=== PATIENT | female | born 1975 | race Caucasian/White ===

== ENCOUNTER 2025-07-16 02:21 | Emergency (ER) | payer OTHER, SELFPAY ==
--- NOTE | ~2025-07-16 | CT_ITS ---
CLINICAL HISTORY: Left sided abdominal pain CT abdomen and pelvis with contrast Comparison: None provided. Findings: No focal consolidation or effusion. Trace bilateral lower lobe subsegmental atelectasis. The gallbladder is surgically absent. The liver is enlarged. The liver appears normal in contour. The solid organs are otherwise within normal limits. No hydronephrosis or hydroureter. The kidneys enhance symmetrically. No bowel obstruction, pneumoperitoneum, or pneumatosis. Mildly limited evaluation of the stomach related to gastric underdistention. Scattered subcentimeter short axis lymph nodes are identified within the mesentery adjacent to the cecum. Pelvic contents unremarkable. No bladder wall thickening. Normal appendix. No acute fracture visualized. IMPRESSION: 1. Subcentimeter short axis lymph nodes identified within the mesentery adjacent to the cecum. This finding is nonspecific but may be seen in the setting of mesenteric adenitis. No other CT evidence for an acute inflammatory process identified within the abdomen or pelvis. 2. Hepatomegaly. This document has been electronically signed by: Bharat Torres MD on 07/16/2025 04:51:44
[2025-07-16 02:23] VITALS: BP 177/84; PULSE 87; RESP 18; TEMP 36.5; O2SAT 100; BMI 22.8
[2025-07-16 02:50] LABS: Hematocrit 27.4 % (37.0-47.0); Hemoglobin 7.9 g/dl (12.0-16.0); Imm Gran Abs Auto 0.04 X10*3/uL (0.00-0.03); Imm Gran Pct Auto 0.3 % (0.0-0.4); Lymphocytes Absolute Auto 4.4 X10*3/uL (1.2-4.9); MANUAL DIFF FLAG SCAN; Mean Corpuscular HGB Conc 28.8 g/dl (31.0-35.0); Mean Corpuscular Hemoglobin 17.7 pg (27.0-33.0); NRBC Abs Auto 0.000 X10*3/uL (0.0-0.012); NRBC Pct Auto 0.0 /100WBC (0.0-0.2); Platelet Count 538 X10*3/uL (160-400); Red Blood Count 4.47 X10*6/uL (4.20-5.50); SCAN SMEAR FLAG 1; White Blood Count 12.8 X10*3/uL (4.8-10.8)
[2025-07-16 02:54] LABS: Mean Corpuscular Volume 61.3 fL (80.0-98.0)
[2025-07-16 03:05] LABS: Alanine Aminotransferase 12 U/L (0-31); Albumin Level 4.1 g/dL (3.5-5.0); Alkaline Phosphatase 72 U/L (39-117); Anion Gap 15 (12-20); Aspartate Amino Transferase 16 U/L (5-31); Blood Urea Nitrogen 8 mg/dL (9-16); Calcium 8.8 mg/dL (8.4-10.2); Carbon Dioxide 25 mmol/L (22-29); Chloride 99 mmol/L (96-108); Creatinine Clr Calc Pharmacy 58.0; Estimated Glomerular Filt Rate 59; Potassium 2.9 mmol/L (3.3-5.1); Sodium 136 mmol/L (135-145); Total Protein 7.6 g/dL (6.5-8.0)
--- NOTE | 2025-07-16 03:19 | ED_ITS ---
HPI - General Adult General Chief complaint: Abdominal Pain Stated complaint: left side pain Time Seen by Provider: 07/16/25 03:19 History of Present Illness ED Provider: Diane SOLIS narrative: The patient is a 50-year-old female who says that she has been having pain in her left flank and left abdomen for about 10-12 days. She says that after 2 or 3 days of the pain she went to an urgent care center where she was told that everything checked out well but they were concerned she might have a left-sided kidney infection and so she was placed on 7 days of ciprofloxacin. She says she never had any urinary discomfort, urgency, or frequency. Additionally she had never had any fever or vomiting. Nevertheless she was prescribed a ciprofloxacin which she took and finished. She says that despite ciprofloxacin the pain has not improved and may have gotten worse. She says that the last couple of nights she has been having trouble sleeping because of the pain. The patient she comes to the emergency room tonight because of the ongoing pain. She says that she has had some decrease in her appetite but no nausea or vomiting. No diarrhea. No dysuria, urgency, or frequency. No vaginal discharge. The patient is on no medications. She does not have a primary care doctor. The patient says that she has a history of very heavy periods and has been anemic because of that in the past. The patient says that she has not seen a regular doctor since 2016. She says that she recently had her health insurance reinstated but her health insurance is a [employer] product which she obtained through the [employer] and she says it is very difficult to find a PCP the takes her health insurance in [facility]. Related Data Previous Rx's ?Medication ?Instructions ?Recorded ibuprofen 400 mg tablet 400 mg PO Q6H PRN pain #14 t abs 07/16/25 potassium chloride 10 mEq 20 meq (2 x 10 mEq) PO BID 1 week 07/16/25 capsule,extended release #28 caps Allergies Allergy/AdvReac Type Severity Reaction Status Date / Time strawberry (STRAWBERRY) Allergy Intermediate HIVES Unverified 07/16/25 02:26 Penicillins Allergy Mild HIVES Unverified 07/16/25 02:26 penicillin V Allergy Unknown Hives Verified 07/16/25 02:26 Review of Systems 2 Review of Systems: Yes all other systems are reviewed and are negative Physical Exam ED Vital Signs: Vital Signs - 24 hr 07/16/25 02:23 07/16/25 06:00 07/16/25 06:18 Temperature 97.7 F 97.9 F 97.9 F Pulse Rate 87 88 88 Respiratory Rate 18 16 16 Blood Pressure 177/84 H 170/74 H 170/74 H Pulse Oximetry 100 100 100 Oxygen Delivery Method Room Air Room Air Room Air BMI result Body Mass Index 22.8 Const Other: The patient is a 50-year-old female who was awake and alert. She is pleasant and cooperative. She did not seem in obvious distress or seem obviously acutely ill to me. Orientation/consciousness: patient oriented x3 HENMO Other: The patient has what looks to be some old bruising to the left side of her face. No raccoon eyes. No cormier sign. No dental injuries. Mucous membranes are moist. Normal excursion of the jaw. Eyes Other: No eyelid swelling. The eyes and periocular tissues appear normal. Pupils are round equal, extraocular movements are intact, conjunctivae are clear. Neck Other: Moving her neck easily without apparent discomfort. No neck swelling. Full range of motion. Resp Effort & Inspection: normal respiratory effort Auscultation: clear to auscultation bilaterally Cardio Rate: regular rate Rhythm: regular rhythm Heart sounds: S1 normal heart sound present and S2 normal heart sound present GI Other: The patient has left-sided abdominal tenderness without rebound Back/Spine/Pelvis Other: no CVA percussion tenderness. Skin Other: The patient has what looks like some old bruising to the cheek of the left side of the face. Otherwise the skin is dry and unremarkable. Neuro General: patient oriented x3, gait normal, tone normal, moves all extremities, no focal motor deficits and CN's II-XI intact bilaterally Extrem Other: There is no calf swelling or tenderness. No asymmetry. No peripheral edema. Medications Administered Discontinued Medications Generic Name Dose Route Start Last Admin Trade Name Freq PRN Reason Stop Dose Admin Sodium Chloride 1,000 mls @ 999 mls/hr 07/16/25 03:45 07/16/25 05:17 Ns IV 07/16/25 04:45 Infused .Q1H1M [place] Infusion Acetaminophen 1,000 mg in 100 mls @ 400 mls/hr 07/16/25 03:36 07/16/25 04:21 Ofirmev IV 07/16/25 03:50 Infused ONCE ONE Infusion Iohexol 85 ml 07/16/25 04:18 07/16/25 04:18 Iohexol 350 Mg/Ml 100 Ml Infus..Btl IV 07/16/25 04:19 85 ml ONCE ONE Administration Ketorolac Tromethamine 10 mg 07/16/25 03:36 07/16/25 03:50 Ketorolac Tromethamine 15 Mg/Ml Vial IVPUSH 07/16/25 03:37 10 mg ONCE ONE Administration Ondansetron HCl 4 mg 07/16/25 03:36 07/16/25 03:50 Ondansetron Hcl 4 Mg/2 Ml Vial IVPUSH 07/16/25 03:37 4 mg ONCE ONE Administration Potassium Chloride 40 meq 07/16/25 05:45 07/16/25 05:59 Potassium Chloride Er 20 Meq Tab.Er.Prt PO 07/16/25 05:46 40 meq ONCE ONE Administration Medical Decision Making Medical Decision Making [facility] Narrative: The patient presents with a complaint of left-sided abdominal pain that has been present for about 10 days. She says that she was seen at an urgent care center and placed on 7 days of ciprofloxacin for a possible kidney infection even though she says that she was told that all the results at the urgent care center were unremarkable. She has tenderness in the left side of her abdomen but she has no flank tenderness with CVA percussion. She otherwise does not look obviously acutely ill in any way. Her blood pressures are somewhat high. Her pulses normal. She is afebrile. She has no respiratory component to her complaint. The pain is nonpleuritic. The patient has a white count of 12.8 but she has a normal differential. The patient's CBC showed anemia. Her hemoglobin is 7.9. Her MCV is low. Her RDW was high. The patient's platelet count is elevated at 538. The patient's potassium was low at 2.9. LFTs are unremarkable. Lipase is normal. Glucose was 169. CRP is normal. The CT scan of the abdomen and pelvis shows some possible findings of mesenteric adenitis in the region of the cecum but otherwise no acute findings. There is some hepatomegaly. I doubt that the finding of mesenteric adenitis in the region of the cecum accounts for the patient's pain. My overall impression is that there was no acutely dangerous process at work. I think she may be discharged. She does not have a PCP. She says that her insurance does not have a lot of PCP coverage in [facility]. She is encouraged to contact her insurance to assist in getting a PCP. She should return if worse. She was prescribed supplemental potassium. Lab Data 07/16/25 02:34 07/16/25 02:34 Labs: Lab Results 07/16/25 07/16/25 Range/Units 02:34 04:06 WBC 12.8 H (4.8-10.8) X10*3/uL RBC 4.47 (4.20-5.50) X10*6/uL Hgb 7.9 L (12.0-16.0) g/dl Hct 27.4 L (37.0-47.0) % MCV 61.3 L (80.0-98.0) fL MCH 17.7 L (27.0-33.0) pg MCHC 28.8 L (31.0-35.0) g/dl RDW 18.8 H (11.0-16.0) % Plt Count 538 H (160-400) X10*3/uL MPV 9.4 (9.4-12.3) fL Immature Gran % (Auto) 0.3 (0.0-0.4) % Neut % (Auto) 52.5 (45-73) % Lymph % (Auto) 34.8 (20-40) % [place] % (Auto) 9.6 (2-11) % Eos % (Auto) 2.5 (0-4) % Baso % (Auto) 0.3 (0-2) % Lymph # (Auto) 4.4 (1.2-4.9) X10*3/uL [place] # (Auto) 1.2 (0.1-1.2) X10*3/uL Eos # (Auto) 0.3 (0.0-0.4) X10*3/uL Baso # (Auto) 0.0 (0.0-0.2) X10*3/uL Abs Immat Gran (auto) 0.04 H (0.00-0.03) X10*3/uL Absolute Neuts (auto) 6.7 (2.0-8.3) x10*3/uL Absolute Nucleated RBC 0.000 (0.0-0.012) X10*3/uL Nucleated RBC % (auto) 0.0 (0.0-0.2) /100WBC Smear Tech's Comments VERIFIED Smear Path Review SEE NOTE Sodium 136 (135-145) mmol/L Potassium 2.9 L* (3.3-5.1) mmol/L Chloride 99 (96-108) mmol/L Carbon Dioxide 25 (22-29) mmol/L Anion Gap 15 (12-20) BUN 8 L (9-16) mg/dL Creatinine 0.99 (0.5-1.4) mg/dL Estim Creat Clear Calc 58.0 Estimated GFR 59 Random Glucose 169 H (60-115) mg/dL Calcium 8.8 (8.4-10.2) mg/dL Total Bilirubin 0.1 (0.0-1.0) mg/dL AST 16 (5-31) U/L ALT 12 (0-31) U/L Alkaline Phosphatase 72 (39-117) U/L C-Reactive Protein 0.42 (< or = 0.50) mg/dL Total Protein 7.6 (6.5-8.0) g/dL Albumin 4.1 (3.5-5.0) g/dL Lipase 33 (8-78) U/L Urine Color Yellow Urine Appearance Cloudy Urine pH 6.0 (5.0-9.0) Ur Specific [place] <= 1.005 (1.005-1.025) Urine Protein Negative (Neg-Trace) mg/dL Urine Glucose (UA) Negative (Negative) mg/dL Urine Ketones Negative (Negative) mg/dL Urine Blood Negative (Negative) Urine Nitrite Negative (Negative) Ur Leukocyte Esterase Moderate (2+) H (Negative) Urine RBC 0-2 (0-2) /HPF Urine WBC 11-20 H (0-5) /HPF Ur Squamous Epith Cells 11-20 (0-2) /HPF Urine Bacteria 1+ (None Seen) Hyaline Casts 0-2 (0-2) /LPF Discharge Plan Discharge Clinical Impression: Left flank pain, Hypokalemia Patient Disposition: Home, Self-Care Additional Instructions: Your testing in the emergency room today does not show any definite explanation for the symptoms you has been experiencing. It is possible your pain could be a muscular pain. Your testing does not suggest any significant infection is at work. However you are anemic. I suspect that this is a chronic problem for you. Also your potassium today was low. I have sent a prescription for supplemental potassium to your pharmacy. I have also sent a prescription for ibuprofen which you may use as needed for pain. In addition you may use [id number] acetaminophen. Please contact your health insurance to get information about possible primary care offices which will take your insurance. Please work on getting a primary care doctor. You will need to follow your anemia. Return to the emergency room if significantly worse. Prescriptions: New potassium chloride 10 mEq capsule, extended release 20 meq PO BID 7 Days Qty: 28 0RF ibuprofen 400 mg tablet 400 mg PO Q6H PRN (Reason: pain) Qty: 14 0RF Interventions: ED Discharge Assessment Last Done: 07/16/25 06:18 Discharge Date/Time: 07/16/25 06:18 Print Language: Portuguese
[2025-07-16 04:00] LABS: Lipase 33 U/L (8-78)
[2025-07-16 04:12] LABS: Appearance Urine Cloudy; Glucose Urine UA Negative (Negative); PH 6.0 (5.0-9.0); Specific Gravity - Urine <= 1.005 (1.005-1.025); UMIC TRIGGER UACC YES
[2025-07-16 04:17] LABS: UACC Culture Trigger YES
[2025-07-16] MEDS: iohexoL 350 MG/ML 100 ML INFUS..BTL 85 ML IV (04:18)
[2025-07-16] MEDS: Potassium Chloride ER 20 MEQ TAB.ER.PRT 40 MEQ PO (05:59)
[2025-07-16 06:00] VITALS: BP 170/74; PULSE 88; RESP 16; TEMP 36.6; O2SAT 100
[2025-07-16 06:18] VITALS: BP 170/74; PULSE 88; RESP 16; TEMP 36.6; O2SAT 100
== END 2025-07-16 06:18 | disposition home or self-care (01) ==
PROVIDERS: Emergency Provider Emergency Medicine
DX: R10.9 Unspecified abdominal pain (principal); E87.6 Hypokalemia
CPT/HCPCS: 36415; 74177; 80053; 81001; 83690; 85025; 86140; 87086; 96365; 96375; 99284; 99285; J0131; J1885; J2405; Q9967

== ENCOUNTER → 2025-07-16 03:37 | Outpatient (BNV) | payer OTHER, SELFPAY | PROVIDERS: Emergency Provider Emergency Medicine; Visit Provider Radiology Diagnostic Radiology | DX: R16.0 Hepatomegaly, not elsewhere classified (principal) | CPT/HCPCS: 74177 ==

== ENCOUNTER 2025-07-23 21:00 | Emergency (ER) | payer OTHER, SELFPAY ==
--- NOTE | ~2025-07-23 | CT_ITS ---
CLINICAL HISTORY: worsening L flank pain and leukocytosis CT abdomen and pelvis with contrast Comparison: CT/SR - CT ABDOMEN PELVIS W IV CON - 07/16/25 04:11 EDT Findings: Mild dependent atelectasis. Cholecystectomy. No biliary duct dilatation. Liver, spleen, pancreas, and adrenal glands are within normal limits. No hydronephrosis. Symmetric contrast enhancement of the kidneys. No bowel obstruction, pneumatosis or pneumoperitoneum. Normal appendix. Few prominent right lower quadrant mesenteric lymph nodes, similar to prior. Enlarged uterus with irregular contour of the endometrial cavity, this could be from fibroids or adenomyosis. 2.3 cm left ovarian cyst. Urinary bladder is within normal limits. No acute fracture. IMPRESSION: No hydronephrosis or urolithiasis. Enlarged uterus with irregular contour of the endometrial cavity, this could be from fibroids or adenomyosis. 2.3 cm left ovarian cyst. This document has been electronically signed by: Dick Stoddard MD on 07/24/2025 01:18:47
--- NOTE | ~2025-07-23 | CT_ITS ---
CLINICAL HISTORY: pain L chest pain, leukocytosis CT chest with contrast Comparison: None provided Findings: The heart is normal size. The visualized thyroid and mediastinum are unremarkable. Mild dependent atelectasis. No consolidation, pleural effusion or pneumothorax. The upper abdomen is unremarkable. No acute fractures. IMPRESSION: 1. No acute intrathoracic findings. This document has been electronically signed by: Dick Stoddard MD on 07/24/2025 01:27:02
[2025-07-23 21:19] VITALS: BP 170/78; PULSE 93; RESP 18; TEMP 36.8; O2SAT 98; BMI 23.5
--- NOTE | 2025-07-23 21:19 | ED.ABDPAIN ---
HPI - Abdominal Pain General Chief Complaint: General Medical Stated Complaint: left lower back pain Time Seen by Provider: 07/23/25 22:26 Source: patient Mode of arrival: ambulatory Limitations: no limitations History of Present Illness ED Provider: Dr. Yuli Gay HPI narrative: patient comes to the emergency room complaining of left-sided flank pain and left-sided rib pain for a couple of weeks. Patient denies any injuries, no exercises. No cough, no abdominal pain no nausea vomiting or diarrhea. Patient was seen here about a week ago with the same complaint. Patient states that she went to urgent care 1st, she was prophylactically treated for pyelonephritis although her urine was clean. Patient finished a course of ciprofloxacin. Patient states that when she came here, CT scan was done, she had small lymph nodes but nothing outstanding. Patient states that the pain just keeps getting worse. Patient reports that over the last couple of months, she has lost a proximally 10 lb. Patient states that she is eating her normal diet. Patient denies any night sweats, denies any black or bloody stool. Patient states that she is known to be anemic, and takes iron supplements. Related Data Previous Rx's ?Medication ?Instructions ?Recorded ibuprofen 400 mg tablet 400 mg PO Q6H PRN pain #14 tabs 07/16/25 potassium chloride 10 mEq 20 meq (2 x 10 mEq) PO BID 1 week 07/16/25 capsule,extended release #28 caps ketorolac 10 mg tablet 10 mg PO TID PRN pain #12 tabs 07/24/25 Allergies Allergy/AdvReac Type Severity Reaction Status Date / Time strawberry (STRAWBERRY) Allergy Intermediate HIVES Verified 07/23/25 21:21 Penicillins Allergy Mild HIVES Verified 07/23/25 21:21 penicillin V Allergy Unknown Hives Verified 07/23/25 21:21 Review of Systems Review of Systems Constitutional : No Weight loss, No Fever, No Chills, No Night Sweats, No Fatigue, No Malaise ENT/Mouth : No Hearing loss, No Ear Pain, No Nasal Congestion, No Sinus Pain, No Hoarseness, No sore throat, No Rhinorrhea, No Swallowing Difficulty Eyes: No Eye Pain, No Swelling, No Redness, No Foreign Body, No Discharge, No Vision Changes Cardiovascular : No Chest Pain, No SOB, No Dyspnea on Exertion, No Orthopnea, No Edema, No Palpitations Respiratory : No Cough, No Sputum, No Wheezing, No Smoke Exposure, No Dyspnea Gastrointestinal : No Nausea, No Vomiting, No Diarrhea, No Constipation, No abdominal Pain, No Hematochezia, No Melena Genitourinary : no irregular bleeding, No Dysuria, No Urinary Frequency, No Hematuria, No Urinary Incontinence, No Urgency, No Flank Pain, No Urinary Flow Changes, No Hesitancy Musculoskeletal : No joint pain, No Myalgias, No Joint Swelling Skin : No Skin Lesions, No rash Neuro : No Weakness, No Numbness, No Paresthesias, No Loss of Consciousness, No Dizziness, No Headache Psych : No Anxiety/Panic, No Depression, No SI/HI/AH/VH, No Social Issues, Heme/Lymph: No Bruising, No Bleeding,No Lymphadenopathy Endocrine : No Polyuria, No Polydipsia, No Temperature Intolerance [facility] Social History Social History Alcohol intake: never Smoked in Last 30 Days: No Use of substances other than those prescribed or required for medical reasons: No Advance Directives: No Advance Directives Information Provided: No Do you have a plan to hurt others: No Plan Patient : No (tubes tied) Physical Exam ED Vital Signs: Vital Signs - 24 hr 07/23/25 21:19 Temperature 98.3 F Pulse Rate 93 Respiratory Rate 18 Blood Pressure 170/78 H Pulse Oximetry 98 Oxygen Delivery Method Room Air BMI result Body Mass Index 23.5 Course Course Course Narrative: 50 yo female with PMH of fibroids who was just seen here 07/16 result [address] K [address] CT scan was normal she notes severe LLQ pain L flank and L back pain she cannot sleep due to the pain sitting down hurts. She has no numbness, weakness, saddle anesthesia. She states her pain is 9/120. No fevers, n/v/d, urinary symptoms. No rash. At this time labs, UA, defer imaging to provider this is a RAPID medical screening exam the rest of the history and physical exam is to be done by the main provider. RHIANNON 07/23/25 921pm Medical Decision Making Medical Decision Making [facility] Narrative: My interpretation of labs: Patient's white blood cell count 16.0. Patient's hemoglobin 8.1. Patient states that she is aware that she has a anemia. Denies bloody stool. Patient's chemistry within normal limits, urinalysis negative for UTI, guaiac test negative for blood, toxicology negative CT scan of the chest does not show any acute abnormality CT scan of the abdomen enlarged uterus with a irregular contours of the endometrial cavity, likely fibroids. Patient states that she is aware of this finding. Overall patient feeling a bit better after ketorolac, patient will follow-up with her primary care physician. Discussed with the patient that she needs to have close follow-up with the PCP, it is possible that she may need an MRI If her PCP considers this may be necessary. Differential Diagnosis Differential Diagnoses: The differential diagnosis associated with the presentation includes ( Pyelonephritis, renal colic, ureterolithiasis, musculoskeletal pain, rib fracture) Admission/Observation Consideration of admission/observation: Escalation of care including admission/observation considered ( given patient's recurrent symptoms, observation was considered) Lab Data MDM Lab Attestation statement: I reviewed the patient's lab results. 07/23/25 21:41 07/23/25 21:41 Labs: Lab Results 07/23/25 07/23/25 07/23/25 Range/Units 21:41 21:50 22:53 WBC 16.0 H (4.8-10.8) X10*3/uL RBC 4.48 (4.20-5.50) X10*6/uL Hgb 8.1 L (12.0-16.0) g/dl Hct 27.4 L (37.0-47.0) % MCV 61.2 L (80.0-98.0) fL MCH 18.1 L (27.0-33.0) pg MCHC 29.6 L (31.0-35.0) g/dl RDW 18.6 H (11.0-16.0) % Plt Count 625 H (160-400) X10*3/uL MPV 9.5 (9.4-12.3) fL Immature Gran % (Auto) 0.4 (0.0-0.4) % Neut % (Auto) 59.7 (45-73) % Lymph % (Auto) 29.7 (20-40) % [place] % (Auto) 7.6 (2-11) % Eos % (Auto) 2.2 (0-4) % Baso % (Auto) 0.4 (0-2) % Lymph # (Auto) 4.8 (1.2-4.9) X10*3/uL [place] # (Auto) 1.2 (0.1-1.2) X10*3/uL Eos # (Auto) 0.4 (0.0-0.4) X10*3/uL Baso # (Auto) 0.1 (0.0-0.2) X10*3/uL Abs Immat Gran (auto) 0.07 H (0.00-0.03) X10*3/uL Absolute Neuts (auto) 9.6 H (2.0-8.3) x10*3/uL Absolute Nucleated RBC 0.000 (0.0-0.012) X10*3/uL Nucleated RBC % (auto) 0.0 (0.0-0.2) /100WBC Smear Tech's Comments VERIFIED Sodium 139 (135-145) mmol/L Potassium 3.4 (3.3-5.1) mmol/L Chloride 103 (96-108) mmol/L Carbon Dioxide 29 (22-29) mmol/L Anion Gap 10 L (12-20) BUN 7 L (9-16) mg/dL Creatinine 0.80 (0.5-1.4) mg/dL Estim Creat Clear Calc 71.8 Estimated GFR > 60 Random Glucose 145 H (60-115) mg/dL Calcium 9.1 (8.4-10.2) mg/dL Magnesium 1.5 L (1.6-2.6) mg/dL Total Bilirubin 0.2 (0.0-1.0) mg/dL Direct Bilirubin < 0.2 (0.0-0.5) mg/dL AST 14 (5-31) U/L ALT 9 (0-31) U/L Alkaline Phosphatase 70 (39-117) U/L Total Protein 7.6 (6.5-8.0) g/dL Albumin 4.1 (3.5-5.0) g/dL Lipase 32 (8-78) U/L Urine Color Yellow Urine Appearance Clear Urine pH 7.5 (5.0-9.0) Ur Specific [place] <= 1.005 (1.005-1.025) Urine Protein Negative (Neg-Trace) mg/dL Urine Glucose (UA) Negative (Negative) mg/dL Urine Ketones Negative (Negative) mg/dL Urine Blood Negative (Negative) Urine Nitrite Negative (Negative) Ur Leukocyte Esterase Small (1+) H (Negative) Urine RBC 0-2 (0-2) /HPF Urine WBC 6-10 H (0-5) /HPF Ur Squamous Epith Cells 6-10 (0-2) /HPF Urine Bacteria None Seen (None Seen) Hyaline Casts 0-2 (0-2) /LPF Stool Occult Blood NEGATIVE (NEGATIVE) Urine Opiates Screen Not Detected (Not Detect) Ur Buprenorphine Scrn Not Detected (Not Detect) ng/mL Ur Oxycodone Screen Not Detected (Not Detect) ng/mL Urine Methadone Screen Not Detected (Not Detect) ng/mL Urine Fentanyl Screen Not Detected (Not Detect) Ur Barbiturates Screen Not Detected (Not Detect) Ur Phencyclidine Scrn Not Detected (Not Detect) Ur Amphetamines Screen Not Detected (Not Detect) U Benzodiazepines Scrn Not Detected (Not Detect) Urine Cocaine Screen Not Detected (Not Detect) U Marijuana (THC) Screen Not Detected (Not Detect) Independent Interpretation I performed an independent interpretation of an: CT Scan Radiology Impression Discussion of test interpretation with radiology: I have reviewed the radiologist's reading. Radiologist Impression: The heart is normal size. The visualized thyroid and mediastinum are unremarkable. Mild dependent atelectasis. No consolidation, pleural effusion or pneumothorax. The upper abdomen is unremarkable. No acute fractures. Mild dependent atelectasis. Cholecystectomy. No biliary duct dilatation. Liver, spleen, pancreas, and adrenal glands are within normal limits. No hydronephrosis. Symmetric contrast enhancement of the kidneys. No bowel obstruction, pneumatosis or pneumoperitoneum. Normal appendix. Few prominent right lower quadrant mesenteric lymph nodes, similar to prior. Enlarged uterus with irregular contour of the endometrial cavity, this could be from fibroids or adenomyosis. 2.3 cm left ovarian cyst. Urinary bladder is within normal limits. No acute fracture Medications Administered Discontinued Medications Generic Name Dose Route Start Last Admin Trade Name Freq PRN Reason Stop Dose Admin Acetaminophen 1,000 mg in 100 mls @ 400 mls/hr 07/23/25 22:48 07/23/25 23:13 Ofirmev IV 07/23/25 23:02 Infused ONCE ONE Infusion Iohexol 85 ml 07/23/25 23:41 07/23/25 23:41 Iohexol 350 Mg/Ml 100 Ml Infus..Btl IV 07/23/25 23:42 85 ml ONCE ONE Administration Critical Care Time Critical Care Time Critical Care Time: Yes Total Critical Care Time: 45 Attestation: I have personally provided critical care time. Time includes review of lab data, radiology results, discussion with consultants, and monitoring for potential decompensation. Intervention performed as documented. Discharge Plan Discharge Clinical Impression: Flank pain Patient Disposition: Home, Self-Care Instructions: Flank Pain (ED) Additional Instructions: Please follow-up with your primary care physician tomorrow. If you have any worsening or new symptoms, please return to the emergency room or call 911 Prescriptions: New ketorolac 10 mg tablet 10 mg PO TID PRN (Reason: pain) Qty: 12 0RF Rx Instructions: do not use with ibuprofen, only Tylenol if needed No Action potassium chloride 10 mEq capsule, extended release 20 meq PO BID 7 Days Qty: 28 0RF ibuprofen 400 mg tablet 400 mg PO Q6H PRN (Reason: pain) Qty: 14 0RF Stand Alone Forms: Work/School Release Print Language: Indian
[2025-07-23 21:56] LABS: Appearance Urine Clear; Glucose Urine UA Negative (Negative); PH 7.5 (5.0-9.0); Specific Gravity - Urine <= 1.005 (1.005-1.025); UMIC TRIGGER UACC YES
[2025-07-23 21:59] LABS: Hematocrit 27.4 % (37.0-47.0); Hemoglobin 8.1 g/dl (12.0-16.0); Imm Gran Abs Auto 0.07 X10*3/uL (0.00-0.03); Imm Gran Pct Auto 0.4 % (0.0-0.4); Lymphocytes Absolute Auto 4.8 X10*3/uL (1.2-4.9); MANUAL DIFF FLAG SCAN; Mean Corpuscular HGB Conc 29.6 g/dl (31.0-35.0); Mean Corpuscular Hemoglobin 18.1 pg (27.0-33.0); NRBC Abs Auto 0.000 X10*3/uL (0.0-0.012); NRBC Pct Auto 0.0 /100WBC (0.0-0.2); Platelet Count 625 X10*3/uL (160-400); Red Blood Count 4.48 X10*6/uL (4.20-5.50); SCAN SMEAR FLAG 1; White Blood Count 16.0 X10*3/uL (4.8-10.8)
[2025-07-23 22:02] LABS: UACC Culture Trigger YES
[2025-07-23 22:03] LABS: Alanine Aminotransferase 9 U/L (0-31); Albumin Level 4.1 g/dL (3.5-5.0); Alkaline Phosphatase 70 U/L (39-117); Anion Gap 10 (12-20); Aspartate Amino Transferase 14 U/L (5-31); Blood Urea Nitrogen 7 mg/dL (9-16); Calcium 9.1 mg/dL (8.4-10.2); Carbon Dioxide 29 mmol/L (22-29); Chloride 103 mmol/L (96-108); Creatinine Clr Calc Pharmacy 71.8; Estimated Glomerular Filt Rate > 60; Lipase 32 U/L (8-78); Magnesium 1.5 mg/dL (1.6-2.6); Potassium 3.4 mmol/L (3.3-5.1); Sodium 139 mmol/L (135-145); Total Protein 7.6 g/dL (6.5-8.0)
[2025-07-23 22:07] LABS: Mean Corpuscular Volume 61.2 fL (80.0-98.0)
[2025-07-23 22:59] LABS: OBS Int Ctl Valid YES; OBS1 NEGATIVE (NEGATIVE)
[2025-07-23] MEDS: iohexoL 350 MG/ML 100 ML INFUS..BTL 85 ML IV (23:41)
[2025-07-24 00:05] LABS: Cannabinoid Screen Urine Not Detected (Not Detect)
[2025-07-24 02:53] VITALS: BP 170/78; PULSE 93; RESP 18; TEMP 36.8; O2SAT 98
== END 2025-07-24 02:54 | disposition home or self-care (01) ==
PROVIDERS: Emergency Medicine; Emergency Provider Emergency Medicine
DX: R10.32 Left lower quadrant pain (principal); M54.50 Low back pain, unspecified; R10.2 Pelvic and perineal pain; R07.81 Pleurodynia; Z51.81 Encounter for therapeutic drug level monitoring; Z79.899 Other long term (current) drug therapy
CPT/HCPCS: 36415; 71260; 74177; 80048; 80076; 80307; 81001; 82272; 83690; 83735; 85025; 87086; 96374; 99284; 99285; J0131; Q9967

== ENCOUNTER → 2025-07-23 22:48 | Outpatient (BNV) | payer OTHER, SELFPAY | PROVIDERS: Emergency Provider Emergency Medicine; Visit Provider Radiology Diagnostic Radiology | DX: N83.292 Other ovarian cyst, left side (principal); J98.11 Atelectasis | CPT/HCPCS: 71260; 74177 ==

== ENCOUNTER 2025-08-05 13:54 | Outpatient (AMB) | payer OTHER, SELFPAY ==
--- NOTE | 2025-08-05 13:58 | A.OFFPC_ITS ---
Vital Signs 08/05/25 14:06 Height 5 ft 4.17 in Weight 133 lb 6 oz BMI 22.8 BP 154/86 H Blood Pressure Location Rt brachial Position Sitting Respiration 16 Pulse 106 H Pulse Source Pulse Oximeter Temp 98.3 F Temp Source Oral Pulse Oximetry (%) 100 Oxygen Delivery Method Room Air Intake Visit Reasons: Abdominal Pain -Back Pain Intake Note: establish care. left side between back and stomach is swollen. ER never found out what was wrong Press Technician Required: No Accompanied by: Self / Same As Patient Allergies strawberry (STRAWBERRY) Allergy (Intermediate, Verified 08/05/25 13:58) HIVES Penicillins Allergy (Mild, Verified 08/05/25 13:58) HIVES penicillin V Allergy (Unknown, Verified 08/05/25 13:58) Hives Tobacco use date assessed: 08/05/25 Dental Screening Dental Screen Date: 08/05/25 Did you have a dental visit in the last 12 months?: Yes Did you have a dental problem in the last 6 months where you did not have access to dental care?: No Was dental information given to patient?: Patient has dentist HPI HPI Comments History of Present Illness Details History of Present Illness The patient is a 50-year-old female presenting with abdominal and lower back pain. Enlarged uterus with irregular contour of the endometrial cavity: - Incidentally found on CT scan - Possible fibroids or adenomyosis Left ovarian cyst: - 2.3 cm cyst found on CT scan - No immediate symptoms Lower back pain/flank pain left - Severe, sharp, and burning - Present for about a month - Unresponsive to initial treatment, inc luding antibiotics - Worse when lying down and upon standin g Health Maintenance - Mammogram and colonoscopy were discuss ed and ordered - Discussed the potential for completing a Pap smear, last done in 2017 - Addressed need for regular health scre enings and patient consent obtained for further work-up Review of Systems - General: Denies significant weight los s or gain. - Skin: Reports no rashes, lesions, or d iscolorations. - Neurologic: Reports numbness and burni ng in feet. - Musculoskeletal: Reports severe lower back pain. - Gastrointestinal: Denies gastrointesti nal bleeding, changes in bowel habits, or urinary tract symptoms beyond previous concerns. 10-point ROS reviewed and negative excep t as noted in HPI Past Medical History - History of anemia - No prior colonoscopy or recent Pap sme ar since 2017 Physical Exam - General- Well-appearing, in no acute d istress. - HEENT- Normocephalic, atraumatic. - Neck- Supple, no lymphadenopathy. - Cardiovascular- Regular rate and rhyth m, normal S1/S2. - Respiratory- Lungs clear to auscultati on bilaterally. - Abdomen- Pain on light palpation can not complete abdominal exam - MSK- Full range of motion, normal gait . Pain on palpation left paravertebral - Neuro- Cranial nerves II-XII intact, s trength 5/5. - Skin- Warm, dry, intact. Discussion Notes I discussed with the patient the findings of the CT scan indicating an enlarged uterus with an irregular contour suggestive of fibroids or adenomyosis, and a left ovarian cyst. I advised her on follow-up imaging with pelvic and transvaginal ultrasounds for further evaluation. We also discussed starting a series of blood tests, including a comprehensive metabolic panel and complete blood count, to assess overall health and address her symptoms of pain and poss ible anemia. I explained the necessity of preventive health measures, including a mammogram and colonoscopy, and addressed the logistics and preparations for these procedures. Various options for pain management were discussed, including a short-term prescription of an opioid analgesic, emphasizing the minimal risk of addiction with limited use. Informed consent was obtained for all discussed interventions, and the patient was made aware of warning signs that would necessitate immediate medical attention. Plan 1. anemia 2. abnormality of red blood cells 3. elevated white blood cell count 4. elevated glucose 5. low magnesium 6. enlarged uterus with irregular contou r of the endometrial cavity - Further imaging with pelvic ultrasound to assess suspected fibroids or adenomyosis. 7. left ovarian cyst - Scheduled follow-up ultrasound to [facility] size and characteristics of the cyst. 8. Lower Back Pain - Initiated short-term opioid therapy fo r pain. - Plan for further evaluation if symptom s persist despite treatment. Patient Instructions - Follow-up for scheduled ultrasound and blood tests. - Take pain medication as prescribed, pa rticularly at night to aid sleep. - Report any worsening symptoms or new c oncerns immediately. - Prepare for mammogram and schedule col onoscopy as discussed. - Continue iron supplementation as neede d for anemia. - Contact office with any questions or i f conditions worsen before follow-up appointments. PFSH Family History (Updated 08/05/25 @ 14:06 by Manjeet Renteria MA) Father Cancer Mother Kidney failure COPD (chronic obstructive pulmonary disease) Lung cancer Social History (Updated 08/05/25 @ 14:06 by Manjeet Renteria MA) Housing: House Alcohol intake: current Alcohol intake frequency: does not drink Patient Tobacco Use Status: Never used Tobacco service: No Current occupational status: unemployed Cognitive needs: No Hearing needs: No 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) Questionnaire PHQ-9 Over the last 2 weeks, how often have you been bothered by any of the following problems? 1. Little interest or pleasure in doing things: nearly every day 2. Feeling down, depressed, or hopeless: not at all 3. Trouble falling or staying asleep, or sleeping too much: not at all 4. Feeling tired or having little energy: several days 5. Poor appetite or overeating: not at all 6. Feeling bad about yourself - or that you are a failure or have let yourself or your family down: not at all 7. Trouble concentrating on things, such as reading the newspaper or watching television: not at all 8. Moving or speaking so slowly that other people could have noticed. Or the opposite - being so fidgety or restless that you have been moving around a lot more than usual: not at all 9. Thoughts that you would be better off or of hurting yourself in some way: not at all Total score: 4 Source: Developed by Drs. Nakul Gaytan, Sheila Gottlieb, Gareth Smith and colleagues, with an educational johny from [employer]. Thrive Questionnaire Date Thrive assessed: 07/31/25 I am a: Patient What is your living situation today?: I have a steady place to live Within the past 12 months, did the food you bought not last and you didn't have the money to get more?: Never true Within the past 12 months, did you worry whether your food would run out before you got money to buy more?: I choose not to answer this question Do you have trouble paying for medicines?: No Do you have trouble getting transportation to medical appointments?: No Do you have trouble paying your heating and electricity bill?: No Do you have trouble taking care of your child, family member or friend?: No Do you have trouble with day-to-day activities such as bathing, preparing meals, shopping, managing finances, etc.?: No Are you currently unemployed and looking for a job?: No Are you interested in more education?: No Please select the resources that you would like help with: None Currently or been in a relationship where the following occur: No concerns reported THRIVE Score: 0 AUDIT C Alcohol Use Questionnaire (AUDIT-C) 1. How often do you have a drink containing alcohol?: Never 3. How often do you have six or more drinks on one occasion?: Never Total Score: 0 JANEE-7 AMB Questionnaire JANEE-7 Feeling nervous, anxious, or on edge: 1 = Several days Not being able to stop or control worryin = Not at all Worrying too much about different things: 0 = Not at all Trouble relaxin = Several days Being so restless that it is hard to sit still: 1 = Several days Becoming easily annoyed or irritable: 0 = Not at all Feeling afraid as if something awful might happen: 0 = Not at all Total JANEE-7 score (0-4 normal; 5-9 mild; 10-14 moderate; 15-21 severe): 3 Source: Developed by Drs. Nakul Gaytan, Sheila Gottlieb, Gareth Smith and colleagues, with an educational johny from [employer]. Physical exam (Primary Care) Vital Signs: Last Vital Signs Temp 98.3 F 08/05/25 14:06 Pulse 106 H 08/05/25 14:06 Resp 16 08/05/25 14:06 BP 154/86 H 08/05/25 14:06 Pulse Ox 100 08/05/25 14:06 Oxygen Delivery Method Room Air 08/05/25 14:06 BMI result Body Mass Index 22.8 Tobacco/Smoking Status: Tobacco use Status Tobacco use date assessed 08/05/25 08/05/25 14:01 Patient Tobacco Use Status Never used Tobacco 08/05/25 14:06 PHQ-9: PHQ-9 Score PHQ-9: Total score 4 08/05/25 14:01 Thrive Assessment: Date of Thrive Assessment Date Thrive assessed 07/31/25 08/05/25 14:01 Currently or been in a relationship where the following occur: No concerns reported Coding Level of Care Code New Pt Level 4 (04069) Diagnoses Encounter to establish care with new provider Z76.89 Encounter for screening, unspecified Z13.9 Counseling, unspecified Z71.9 Anemia D64.9 Elevated white blood cell count D72.829 Abnormality of red blood cells R71.8 Elevated glucose R73.09 Low magnesium level R79.0 Enlarged uterus N85.2 Ovarian cyst N83.209 Flank pain R10.9 Abdominal pain R10.9 Screening for HIV (human immunodeficiency virus) Z11.4 Screening for diabetes mellitus Z13.1 Screening for lipoid disorders Z13.220 Screening for depression Z13.31 Hypertension screen Z13.6 Encounter for screening mammogram for breast cancer Z12.31 Encounter for screening for malignant neoplasm of small intestine Z12.13 Assessment & Plan Assessment & Plan (1) Encounter to establish care with new provider: Code(s): Z76.89 - Persons encountering health services in other specified circumstances (2) Encounter for screening, unspecified: Code(s): Z13.9 - Encounter for screening, unspecified (3) Counseling, unspecified: Code(s): Z71.9 - Counseling, unspecified (4) Anemia: Code(s): D64.9 - Anemia, unspecified (5) Elevated white blood cell count: Code(s): D72.829 - Elevated white blood cell count, unspecified (6) Abnormality of red blood cells: Code(s): R71.8 - Other abnormality of red blood cells (7) Elevated glucose: Code(s): R73.09 - Other abnormal glucose (8) Low magnesium level: Code(s): R79.0 - Abnormal level of blood mineral (9) Enlarged uterus: Code(s): N85.2 - Hypertrophy of uterus (10) Ovarian cyst: Code(s): N83.209 - Unspecified ovarian cyst, unspecified side (11) Flank pain: Code(s): R10.9 - Unspecified abdominal pain (12) Abdominal pain: Code(s): R10.9 - Unspecified abdominal pain (13) Screening for HIV (human immunodeficiency virus): Code(s): Z11.4 - Encounter for screening for human immunodeficiency virus [HIV] (14) Screening for diabetes mellitus: Code(s): Z13.1 - Encounter for screening for diabetes mellitus (15) Screening for lipoid disorders: Code(s): Z13.220 - Encounter for screening for lipoid disorders (16) Screening for depression: Code(s): Z13.31 - Encounter for screening for depression (17) Hypertension screen: Code(s): Z13.6 - Encounter for screening for cardiovascular disorders (18) Encounter for screening mammogram for breast cancer: Code(s): Z12.31 - Encounter for screening mammogram for malignant neoplasm of breast (19) Encounter for screening for malignant neoplasm of small intestine: Code(s): Z12.13 - Encounter for screening for malignant neoplasm of small intestine Plan Orders: Orders Complete Blood Count Auto Diff Today Z13.9 - Encounter for screening, unspecified, Z76.89 - Persons encountering health services in other specified circumstances Chlamydia Species Ab Panel Today Z13.9 - Encounter for screening, unspecified, Z76.89 - Persons encountering health services in other specified circumstances CT NG by PCR Urine Today Z13.9 - Encounter for screening, unspecified, Z76.89 - Persons encountering health services in other specified circumstances Hepatitis B Surface Antigen Today Z13.9 - Encounter for screening, unspecified, Z76.89 - Persons encountering health services in other specified circumstances Hepatitis C Antibody Today Z13.9 - Encounter for screening, unspecified, Z76.89 - Persons encountering health services in other specified circumstances Vitamin B12 and Folate Today Z13.9 - Encounter for screening, unspecified, Z76.89 - Persons encountering health services in other specified circumstances MM screening mammo BI Today Z12.31 - Encounter for screening mammogram for malignant neoplasm of breast US retroperitoneal comp Today R10.9 - Unspecified abdominal pain US abdomen complete Today R10.9 - Unspecified abdominal pain US pelvic and transvaginal Today R93.89 - Abnormal findings on diagnostic imaging of other specified body structures, Z13.9 - Encounter for screening, unspecified, Z76.89 - Persons encountering health services in other specified circumstances Comprehensive Met. Panel Today Z13.9 - Encounter for screening, unspecified, Z76.89 - Persons encountering health services in other specified circumstances Hemoglobin A1c Today Z13.9 - Encounter for screening, unspecified, Z76.89 - Persons encountering health services in other specified circumstances Hepatitis B Surface Antibody Today Z13.9 - Encounter for screening, unspecified, Z76.89 - Persons encountering health services in other specified circumstances HIV Ab/Ag Today Z13.9 - Encounter for screening, unspecified, Z76.89 - Persons encountering health services in other specified circumstances Lipid Panel Today Z13.9 - Encounter for screening, unspecified, Z76.89 - Persons encountering health services in other specified circumstances Magnesium Today Z13.9 - Encounter for screening, unspecified, Z76.89 - Persons encountering health services in other specified circumstances Syphilis Screen Today Z13.9 - Encounter for screening, unspecified, Z76.89 - Persons encountering health services in other specified circumstances TSH reflex Free T4 Today Z13.9 - Encounter for screening, unspecified, Z76.89 - Persons encountering health services in other specified circumstances UA CC w/rflx Micro + Cult Today Z13.9 - Encounter for screening, unspecified, Z76.89 - Persons encountering health services in other specified circumstances Vitamin D 1,25 dihydroxy Today Z13.9 - Encounter for screening, unspecified, Z76.89 - Persons encountering health services in other specified circumstances Referrals Open Access Screening Colonoscopy Referral Z12.11 - Encounter for screening for malignant neoplasm of colon, Z12.12 - Encounter for screening for malignant neoplasm of rectum Medications: New oxycodone-acetaminophen 2.5-325 mg (Percocet) Partial Fill upon patient request. 1 tab PO Q8H PRN 7 tabs 0RF pain Discontinued potassium chloride ER Discontinued Reason: Patient no longer taking 20 mEq (2 x 10 mEq) PO BID 1 week 28 caps 0RF ketorolac do not use with ibuprofen, only Tylenol if needed Discontinued Reason: Patient no longer taking 10 mg PO TID PRN 12 tabs 0RF pain
[2025-08-05 14:06] VITALS: BP 154/86; PULSE 106; RESP 16; TEMP 36.8; O2SAT 100; BMI 22.8
== END 2025-08-05 14:42 | disposition home or self-care (01) ==
LOC: HO.HMCFMS 13:55
PROVIDERS: PCP Student in an Organized Health Care Education/Training Program; Visit Provider Student in an Organized Health Care Education/Training Program
DX: D64.9 Anemia, unspecified (principal); D72.829 Elevated white blood cell count, unspecified; R73.09 Other abnormal glucose; R79.0 Abnormal level of blood mineral; N85.2 Hypertrophy of uterus; N83.209 Unspecified ovarian cyst, unspecified side; R10.9 Unspecified abdominal pain

== ENCOUNTER 2025-08-05 15:21 | Outpatient (REF) | payer OTHER, SELFPAY ==
[2025-08-05 17:28] LABS: MANUAL DIFF FLAG NO
[2025-08-05 18:00] LABS: Hematocrit 32.1 % (37.0-47.0); Hemoglobin 8.9 g/dl (12.0-16.0); Imm Gran Abs Auto 0.03 X10*3/uL (0.00-0.03); Imm Gran Pct Auto 0.2 % (0.0-0.4); Lymphocytes Absolute Auto 3.5 X10*3/uL (1.2-4.9); Mean Corpuscular HGB Conc 27.7 g/dl (31.0-35.0); Mean Corpuscular Hemoglobin 18.0 pg (27.0-33.0); NRBC Abs Auto 0.000 X10*3/uL (0.0-0.012); NRBC Pct Auto 0.0 /100WBC (0.0-0.2); Platelet Count 584 X10*3/uL (160-400); Red Blood Count 4.95 X10*6/uL (4.20-5.50); White Blood Count 12.4 X10*3/uL (4.8-10.8)
[2025-08-05 18:14] LABS: Appearance Urine Cloudy; Glucose Urine UA Negative (Negative); PH 6.0 (5.0-9.0); Specific Gravity - Urine <= 1.005 (1.005-1.025); UMIC TRIGGER UACC YES
[2025-08-05 18:19] LABS: Alanine Aminotransferase 14 U/L (0-31); Albumin Level 4.6 g/dL (3.5-5.0); Alkaline Phosphatase 73 U/L (39-117); Anion Gap 13 (12-20); Aspartate Amino Transferase 25 U/L (5-31); Blood Urea Nitrogen 6 mg/dL (9-16); Calcium 9.3 mg/dL (8.4-10.2); Carbon Dioxide 27 mmol/L (22-29); Chloride 102 mmol/L (96-108); Cholesterol 220 mg/dL (<200); Estimated Glomerular Filt Rate > 60; HDL Cholesterol 38 mg/dL (>40); Magnesium 2.0 mg/dL (1.6-2.6); Potassium 3.6 mmol/L (3.3-5.1); Sodium 138 mmol/L (135-145); Total Protein 8.5 g/dL (6.5-8.0); Triglycerides 307 mg/dL (<150)
[2025-08-05 18:26] LABS: Mean Corpuscular Volume 64.8 fL (80.0-98.0)
[2025-08-05 18:51] LABS: Folate 5.6 ng/mL (> or = 4.0); Vitamin B12 288 pg/mL (200-900)
[2025-08-05 19:18] LABS: UACC Culture Trigger YES
[2025-08-06 03:06] LABS: CT PCR Urine NOT DETECTED (Not Detect.); NG PCR Urine NOT DETECTED (Not Detect.)
[2025-08-06 09:07] LABS: HBS Num1 110.71 mIU/mL (0-7.99); HBsAGNum1 0.36 S/CO (0.00-0.99); HIV Num 1 0.04 S/CO (0.00-0.99); Hepatitis B Surface Antigen Negative (Negative); ~HepC Num1 0.07 S/CO (0.00-0.79); ~Hepatitis B Surface Antibody REACTIVE (Nonreactive); ~Hepatitis C Antibody Nonreactive (Nonreactive)
[2025-08-06 09:44] LABS: Syphilis Screen Nonreactive (Nonreactive)
[2025-08-10 16:29] LABS: Chlamydia Trachomatis IgA <1:16 titer (<1:16)
[2025-08-11 01:08] LABS: VITAMIN D (1,25 OH) D3 41 pg/mL; Vit D (1,25-Dihydroxy) Total 41 pg/mL (18-72); Vitamin D (1,25 OH) D2 <8 pg/mL
== END 2025-08-05 15:22 | disposition home or self-care (01) ==
LOC: HO.HKASLDS 15:21
PROVIDERS: Visit Provider Student in an Organized Health Care Education/Training Program
DX: Z76.89 Persons encountering health services in other specified circumstances (principal); Z13.9 Encounter for screening, unspecified; Z11.4 Encounter for screening for human immunodeficiency virus [HIV]; Z13.1 Encounter for screening for diabetes mellitus; Z13.220 Encounter for screening for lipoid disorders; Z13.31 Encounter for screening for depression; Z71.9 Counseling, unspecified; N83.202 Unspecified ovarian cyst, left side; R10.9 Unspecified abdominal pain; N85.2 Hypertrophy of uterus; D64.9 Anemia, unspecified; D72.829 Elevated white blood cell count, unspecified; R71.8 Other abnormality of red blood cells; R73.09 Other abnormal glucose; R79.0 Abnormal level of blood mineral
CPT/HCPCS: 80053; 80061; 81001; 82607; 82652; 82746; 83036; 83735; 84443; 85025; 86631; 86632; 86706; 86780; 86803; 87086; 87340; 87389; 87491; 87591

== ENCOUNTER 2025-08-11 13:04 | Outpatient (REF) | payer OTHER, SELFPAY ==
--- NOTE | ~2025-08-11 | US_ITS ---
EXAMINATION: US RETROPERITONEAL COMPLETE (RENAL) CLINICAL INFORMATION: Abdominal pain.. COMPARISON: None. Correlation made with CT abdomen pelvis 07/23/2025. TECHNIQUE: Real-time imaging of the kidneys and bladder. FINDINGS: RIGHT KIDNEY: 13.6 x 6.9 x 7.1 cm (SAG x AP x TRV). The kidney is normal in size, contour, and echogenicity. Renal cortical thickness is normal. No calculi or focal parenchymal lesions. There is mild hydronephrosis. LEFT KIDNEY: 13.5 x 6.3 x 5.8 cm (SAG x AP x TRV). The kidney is normal in size, contour, and echogenicity. Renal cortical thickness is normal. No calculi or focal parenchymal lesions. There is mild hydronephrosis. BLADDER: Well distended and normal. Bilateral ureteral jets are demonstrated. Prevoid bladder volume is 387 mL. Postvoid bladder volume is 12.3 mL. US/US retroperitoneal comp IMPRESSION: 1. Bilateral hydronephrosis. This is of uncertain etiology. 2. Normal urinary bladder. Electronically signed by: Armando Doe MD 08/11/2025 02:25 PM EDT
--- NOTE | ~2025-08-11 | US_ITS ---
EXAMINATION: US PELVIS CLINICAL INFORMATION: Abnormal findings on CT examination 07/23/2025. COMPARISON: Pelvic ultrasound 01/30/2017. CT abdomen and pelvis 07/23/2025. TECHNIQUE: Ultrasound of the pelvis is performed using both transabdominal and transvaginal transducers along with Doppler. Transvaginal imaging is performed due to inadequate visualization transabdominally. FINDINGS: Uterus: The uterus is anteverted and measures 9.7 x 7.0 x 7.7 cm. Cervix is normal with small nabothian cysts. The double wall endometrial thickness is 10 mm. Uterus is bulky in appearance, with extremely heterogeneous myometrium. Discrete fibroids could not be definitively measured. Smooth contour is present. Adnexa: Both ovaries are visualized. There is normal color flow to the adnexa. There is no ovarian torsion. There is no pelvic ascites or fluid collection. There are no adnexal masses. Right ovary measures 2.5 x 1.8 x 2.2 cm. Volume = 5.1 mL. Normal sonographic appearance. Left ovary measures 3.2 x 3.3 x 2.8 cm. Volume = 15.4 mL. Dominant follicle measuring 2.4 cm. Normal sonographic appearance. US/US pelvic and transvaginal IMPRESSION: 1. Bulky and heterogeneous myometrium, without discrete fibroid able to be measured. 2. 10 mm endometrial stripe. 3. Normal ovaries bilaterally. Electronically signed by: Armando Doe MD 08/11/2025 02:22 PM EDT
== END 2025-08-11 13:05 | disposition home or self-care (01) ==
LOC: HO.HMGCX 13:04
PROVIDERS: PCP Student in an Organized Health Care Education/Training Program; Visit Provider Student in an Organized Health Care Education/Training Program
DX: R93.89 Abnormal findings on diagnostic imaging of other specified body structures (principal); R10.9 Unspecified abdominal pain; Z76.89 Persons encountering health services in other specified circumstances; Z13.89 Encounter for screening for other disorder
CPT/HCPCS: 76770; 76830; 76856

== ENCOUNTER → 2025-08-11 13:11 | Outpatient (BNV) | payer OTHER, SELFPAY | PROVIDERS: PCP Student in an Organized Health Care Education/Training Program; Visit Provider Radiology Diagnostic Radiology | DX: N85.2 Hypertrophy of uterus (principal); R10.84 Generalized abdominal pain; N13.30 Unspecified hydronephrosis | CPT/HCPCS: 76770; 76830; 76856 ==

== ENCOUNTER 2025-08-19 13:38 | Outpatient (AMB) | payer OTHER, SELFPAY ==
[2025-08-19 13:41] VITALS: BP 170/85; PULSE 89; RESP 16; TEMP 36.8; O2SAT 100; BMI 23.3
--- NOTE | 2025-08-19 13:41 | A.OFFPC_ITS ---
Vital Signs 08/19/25 13:41 Height 5 ft 4.17 in Weight 136 lb 6 oz BMI 23.3 BP 170/85 H Blood Pressure Location Rt brachial Position Sitting Respiration 16 Pulse 89 Pulse Source Pulse Oximeter Temp 98.2 F Temp Source Oral Pulse Oximetry (%) 100 Oxygen Delivery Method Room Air Intake Visit Reasons: 2 week follow up Intake Note: establish care. left side between back and stomach is swollen. ER never found out what was wrong Forestry Aid Required: No Accompanied by: Self / Same As Patient Allergies strawberry (STRAWBERRY) Allergy (Intermediate, Verified 08/19/25 13:48) HIVES Penicillins Allergy (Mild, Verified 08/19/25 13:48) HIVES penicillin V Allergy (Unknown, Verified 08/19/25 13:48) Hives Tobacco use date assessed: 08/05/25 Dental Screening Dental Screen Date: 08/05/25 Did you have a dental visit in the last 12 months?: Yes Did you have a dental problem in the last 6 months where you did not have access to dental care?: No Was dental information given to patient?: Patient has dentist HPI HPI Comments History of Present Illness Details History of Present Illness The patient is a 50-year-old female presenting with abdominal pain and swelling, along with a review of recent test results. Mild hydronephrosis: - The patient has been experiencing abdo phillip pain, which may be related to mild hydronephrosis identified on imaging. - There is no history of urinary tract i nfections or urinary retention, and the patient reports adequate fluid intake. Nabothian cyst: - A nabothian cyst was identified on the cervix, which is considered a benign finding. Bulky heterogeneous uterus: - Imaging revealed a bulky heterogeneous uterus without evidence of fibroids. Iron deficiency anemia: - The patient has iron deficiency anemia , likely secondary to heavy menstrual bleeding. - Laboratory results show low hemoglobin , hematocrit, MCV, MCH, and MCHC levels. Type 2 diabetes mellitus: - The patient has been diagnosed with ty pe 2 diabetes mellitus, with an HbA1c above 6.5%. Hyperlipidemia: - The patient has elevated triglycerides and cholesterol levels, with LDL cholesterol at 121 mg/dL and HDL cholesterol at 38 mg/dL. Low vitamin B12 levels: - The patient's vitamin B12 levels are l ow, though not below the cutoff, and supplementation is planned due to metformin use. Port-wine stain: - The patient has a port-wine stain on t he left side, which has been mistaken for bruising in the past. Review of Systems - Gastrointestinal: Reports abdominal pa in and swelling. - Genitourinary: Denies urinary tract in fections or urinary retention. - Hematologic: Reports heavy menstrual b leeding. - Endocrine: Reports frequent urination at night. 10-point ROS reviewed and negative excep t as noted in HPI Past Medical History - History of COVID-19 infection in February last year. Health Maintenance - Mammogram scheduled for September 28. - Colonoscopy appointment pending follow -up. - Referral to urology for hydronephrosis evaluation. - Referral to surface grinder tender and observatory director for diabetes management. - Referral to external grinder tool for diabetic fo ot care. - Eye examination recommended for diabet ic retinopathy screening. Physical Exam General: Well-appearing, in no acute distress, but reports pain and swelling in unspecified areas. Vital signs: Within normal limits. HEENT: Normocephalic, atraumatic. PERRLA, EOMI. Conjunctiva clear, sclera anicteric. Oropharynx clear, mucous membranes moist. TMs intact bilaterally. Noted a port wine stain on the left side of the face. Neck: Supple, no lymphadenopathy, no thyromegaly, no JVD or carotid bruits. Cardiovascular: RRR, normal S1/S2, no murmurs, rubs, or gallops. Peripheral pulses 2+ and symmetric. No edema. Respiratory: Lungs clear to auscultation bilaterally, no wheezes, rales, or rhonchi. Normal effort. Abdomen: Soft, non-tender, non-distended. Normoactive bowel sounds. No hepatosplenomegaly, exquisite pain on palpation left upper quadrant left flank mobile mass palpated. Mild hydronephrosis noted on limited abdominal ultrasound MSK: Full range of motion, no joint swelling or deformity. Normal gait. Palpated mass on the left forearm. Skin: Warm, dry, intact. No rashes, lesions, or pallor. Port wine stain noted on the left side of the face. Neuro: Alert and oriented x3. Cranial nerves II-XII intact. Strength 5/5 thro ughout. Sensation intact. Reflexes 2+ symmetric. Normal coordination and gait. Psych: Appropriate mood and affect. Normal judgment and insight. Reports feeling judged and concerned about previous medical interactions. Plan 1. Mild Hydronephrosis - Referral to urology for further evalua tion and management of hydronephrosis. 2. Nabothian Cyst - No immediate intervention required; fo llow-up with CUSTOMER RESOLUTION SPECIALIST for further evaluation. 3. Bulky Heterogeneous Uterus - Follow-up with CUSTOMER RESOLUTION SPECIALIST for further eval uation and management. 4. Iron Deficiency Anemia - Initiate iron supplementation with 324 mg of iron daily, taken with vitamin C for better absorption. 5. Type 2 Diabetes Mellitus - Start metformin 1000 mg, one tablet in the morning and one at night. - Referral to surface grinder tender and observatory director for comprehensive diabetes management. 6. Hyperlipidemia - Initiate atorvastatin therapy to manag e cholesterol levels. 7. Low Vitamin B12 Levels - Supplement with vitamin B12 due to pot ential depletion from metformin use. 8. Port-Wine Stain - Documented as a birthmark; no treatmen t required. Discussion Notes During the consultation, I discussed the findings of mild hydronephrosis and the need for a urology referral. We reviewed the patient's anemia, likely due to heavy menstrual bleeding, and the plan to start iron supplementation. I explained the diagnosis of type 2 diabetes mellitus and the initiation of metformin therapy, along with referrals to a surface grinder tender and observatory director. We also addressed hyperlipidemia with atorvastatin therapy and the need for vitamin B12 supplementation due to metformin use. The port-wine stain was documented as a birthmark, requiring no treatment. I emphasized the importance of follow-up appointments with CUSTOMER RESOLUTION SPECIALIST for the bulky uterus and nabothian cyst, and the need for a mammogram and colonoscopy. Patient was informed and verbally consented to the use of an ambient scribe for clinic note documentation during this visit. Patient Instructions - Take iron supplements daily with vitam in C for better absorption. - Start metformin 1000 mg, one tablet in the morning and one at night. - Begin atorvastatin therapy as prescrib ed. - Follow up with urology for hydronephro sis evaluation. - Schedule and attend appointments with CUSTOMER RESOLUTION SPECIALIST for further evaluation of uterine findings. - Attend appointments with surface grinder tender and observatory director for diabetes management. - Schedule a mammogram and colonoscopy a s advised. - Monitor blood sugar levels regularly a nd report any significant changes. Of note- we will send patient to the emergency room due to the mass on palpation exquisite pain on the left upper quadrant left flank so she could be evaluated with further imaging spoke to PENNIE Patricia in the ED where I gave soft handoff and he is aware. 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 1. Little interest or pleasure in doing things: nearly every day 2. Feeling down, depressed, or hopeless: not at all 3. Trouble falling or staying asleep, or sleeping too much: not at all 4. Feeling tired or having little energy: several days 5. Poor appetite or overeating: not at all 6. Feeling bad about yourself - or that you are a failure or have let yourself or your family down: not at all 7. Trouble concentrating on things, such as reading the newspaper or watching television: not at all 8. Moving or speaking so slowly that other people could have noticed. Or the opposite - being so fidgety or restless that you have been moving around a lot more than usual: not at all 9. Thoughts that you would be better off or of hurting yourself in some way: not at all Total score: 4 Source: Developed by Drs. Nakul Gaytan, Sheila Gottlieb, Gareth Smith and colleagues, with an educational johny from [employer]. Thrive Questionnaire Date Thrive assessed: 07/31/25 I am a: Patient What is your living situation today?: I have a steady place to live Within the past 12 months, did the food you bought not last and you didn't have the money to get more?: Never true Within the past 12 months, did you worry whether your food would run out before you got money to buy more?: I choose not to answer this question Do you have trouble paying for medicines?: No Do you have trouble getting transportation to medical appointments?: No Do you have trouble paying your heating and electricity bill?: No Do you have trouble taking care of your child, family member or friend?: No Do you have trouble with day-to-day activities such as bathing, preparing meals, shopping, managing finances, etc.?: No Are you currently unemployed and looking for a job?: No Are you interested in more education?: No Please select the resources that you would like help with: None Currently or been in a relationship where the following occur: No concerns reported THRIVE Score: 0 AUDIT C Alcohol Use Questionnaire (AUDIT-C) 1. How often do you have a drink containing alcohol?: Never 3. How often do you have six or more drinks on one occasion?: Never Total Score: 0 Physical exam (Primary Care) Vital Signs: Last Vital Signs Temp 98.2 F 08/19/25 13:41 Pulse 89 08/19/25 13:41 Resp 16 08/19/25 13:41 BP 170/85 H 08/19/25 13:41 Pulse Ox 100 08/19/25 13:41 Oxygen Delivery Method Room Air 08/19/25 13:41 BMI result Body Mass Index 23.3 Tobacco/Smoking Status: Tobacco use Status Tobacco use date assessed 08/05/25 08/19/25 13:43 Patient Tobacco Use Status Never used Tobacco 08/19/25 13:43 PHQ-9: PHQ-9 Score PHQ-9: Total score 4 08/19/25 13:43 Thrive Assessment: Date of Thrive Assessment Date Thrive assessed 07/31/25 08/19/25 13:43 Currently or been in a relationship where the following occur: No concerns repo rted Coding Level of Care Code New Pt Level 3 (35967) Diagnoses Mass of abdomen of single quadrant R19.00 Abdominal pain R10.9 Leukocytosis D72.829 Diabetes type 2 E11.9 Hydronephrosis N13.30 Nabothian cyst N88.8 Enlarged uterus N85.2 Iron deficiency anemia due to chronic blood loss D50.0 Menorrhagia N92.0 Hyperlipidemia E78.5 Port wine stain Q82.5 Low vitamin B12 level R79.89 Assessment & Plan Assessment & Plan (1) Mass of abdomen of single quadrant: Code(s): R19.00 - Intra-abdominal and pelvic swelling, mass and lump, unspecified site Category: Medical (2) Abdominal pain: Code(s): R10.9 - Unspecified abdominal pain Category: Medical (3) Leukocytosis: Code(s): D72.829 - Elevated white blood cell count, unspecified Category: Medical (4) Mass of abdomen of single quadrant: Code(s): R19.00 - Intra-abdominal and pelvic swelling, mass and lump, unspecified site Category: Medical (5) Abdominal pain: Code(s): R10.9 - Unspecified abdominal pain Category: Medical (6) Leukocytosis: Code(s): D72.829 - Elevated white blood cell count, unspecified Category: Medical (7) Diabetes type 2: Code(s): E11.9 - Type 2 diabetes mellitus without complications Category: Medical (8) Hydronephrosis: Code(s): N13.30 - Unspecified hydronephrosis (9) Nabothian cyst: Code(s): N88.8 - Other specified noninflammatory disorders of cervix uteri (10) Enlarged uterus: Code(s): N85.2 - Hypertrophy of uterus (11) Iron deficiency anemia due to chronic blood loss: Code(s): D50.0 - Iron deficiency anemia secondary to blood loss (chronic) (12) Menorrhagia: Code(s): N92.0 - Excessive and frequent menstruation with regular cycle (13) Hyperlipidemia: Code(s): E78.5 - Hyperlipidemia, unspecified (14) Port wine stain: Code(s): Q82.5 - Congenital non-neoplastic nevus (15) Low vitamin B12 level: Code(s): R79.89 - Other specified abnormal findings of blood chemistry Plan Orders: Referrals Podiatry Referral E11.9 - Type 2 diabetes mellitus without complications, Z13.9 - Encounter for screening, unspecified Ophthalmology Referral E11.9 - Type 2 diabetes mellitus without complications, Z13.9 - Encounter for screening, unspecified Nutrition/Dietitian Referral E11.9 - Type 2 diabetes mellitus without complications Nurse Navigator Referral E11.9 - Type 2 diabetes mellitus without complications Medications: New rosuvastatin 10 mg PO DAILY 90 tabs 0RF ferrous sulfate 325 mg PO DAILY 90 tabs 0RF metformin 1,000 mg PO BID 180 tabs 0RF E11.9 - Type 2 diabetes mellitus without complications mecobalamin (vitamin B12) place tablet under tongue and allow to dissolve for at least30 secs before swallowing 1,000 mcg sublingual BEDTIME 90 tabs 0RF ascorbic acid (vitamin C) 500 mg PO DAILY 90 tabs 0RF
== END 2025-08-19 14:38 | disposition home or self-care (01) ==
LOC: HO.HMCFMS 13:39
PROVIDERS: Visit Provider Student in an Organized Health Care Education/Training Program
DX: R19.00 Intra-abdominal and pelvic swelling, mass and lump, unspecified site (principal); R10.9 Unspecified abdominal pain; D72.829 Elevated white blood cell count, unspecified; E11.9 Type 2 diabetes mellitus without complications; N13.30 Unspecified hydronephrosis; N88.8 Other specified noninflammatory disorders of cervix uteri; N85.2 Hypertrophy of uterus; D50.0 Iron deficiency anemia secondary to blood loss (chronic); N92.0 Excessive and frequent menstruation with regular cycle; E78.5 Hyperlipidemia, unspecified; Q82.5 Congenital non-neoplastic nevus; R79.89 Other specified abnormal findings of blood chemistry

== ENCOUNTER → 2025-08-19 13:38 | Outpatient (BNVA) | payer OTHER, SELFPAY | PROVIDERS: Visit Provider Student in an Organized Health Care Education/Training Program | DX: N13.30 Unspecified hydronephrosis (principal); R19.00 Intra-abdominal and pelvic swelling, mass and lump, unspecified site; R10.9 Unspecified abdominal pain; D72.829 Elevated white blood cell count, unspecified; E11.9 Type 2 diabetes mellitus without complications; N88.8 Other specified noninflammatory disorders of cervix uteri; N85.2 Hypertrophy of uterus; D50.0 Iron deficiency anemia secondary to blood loss (chronic); N92.0 Excessive and frequent menstruation with regular cycle; E78.5 Hyperlipidemia, unspecified; R79.89 Other specified abnormal findings of blood chemistry; Q82.5 Congenital non-neoplastic nevus; Z13.30 Encounter for screening examination for mental health and behavioral disorders, unspecified | CPT/HCPCS: 99212 ==

== ENCOUNTER 2025-08-19 15:07 | Emergency (ER) | payer OTHER, SELFPAY ==
--- NOTE | ~2025-08-19 | CT_ITS ---
CLINICAL HISTORY: left abdominal pain, ? soft tissue mass Exam: CT Abdomen and Pelvis With IV Contrast Comparison: CT 08/11/2025, ultrasound 08/11/2025 The liver density is homogeneous No biliary abnormalities The spleen is normal in size No pancreatic ductal dilatation No hydronephrosis Normal bowel caliber No secondary signs of acute appendicitis No free fluid/free air No vascular abnormalities. Few scattered internal iliac lymph nodes are present, example: 1.5 x 0.7 mm right internal iliac lymph node, image 64, series 2 Bladder outline is smooth. There is globular enlargement of the uterus measuring 9.2 x 7.8 x 11.0 cm. No suspicious skeletal lesions. Impression : Globular enlargement of the uterus, unchanged in size when compared to 07/23/2024. Differential diagnosis would include multiple fibroids, endometrial neoplasm with invasion of junctional zone, and adenomyosis. Few scattered bilateral subcentimeter short axis diameter internal iliac lymph nodes are present Consider tissue sampling and/or MRI with contrast This document has been electronically signed by: Demian Monzon MD on 08/19/2025 22:56:57
[2025-08-19 15:11] VITALS: BP 188/95; PULSE 92; RESP 18; TEMP 37; O2SAT 100; BMI 20.4
--- NOTE | 2025-08-19 15:17 | ED.GENADULT ---
HPI - General Adult General Chief complaint: Recheck/Abnormal Lab/Rx Stated complaint: Catscan STAT per PCP Time Seen by Provider: 08/19/25 18:58 Source: patient, RN notes reviewed and old records reviewed Mode of arrival: ambulatory Limitations: no limitations History of Present Illness ED Provider: Jensen HPI narrative: 50-year-old female with past medical history significant for type 2 diabetes presents for evaluation of left-sided abdominal pain. She reports that she has had left-sided abdominal pain for over a month now. She had numerous CT scans, ultrasounds. She is found to have hydronephrosis but no other acute findings. She went to her primary doctor today and has continued pain. Today she felt a lump on her left flank/abdomen which she reports is new over the last 2 days. She did not seek care when her lump was 1st noticed because she knew she had a primary doctor appointment today pain She was subsequently sent to the ER for further evaluation denies associated symptoms including fevers, chills, cough, shortness of breath, nausea vomiting, diarrhea, black or bloody stool. Her pain is 10/10, in his present whether or not she is moving Related Data Previous Rx's ?Medication ?Instructions ?Recorded ibuprofen 400 mg tablet 400 mg PO Q6H PRN pain #14 tabs 07/16/25 ascorbic acid (vitamin C) 500 mg 500 mg PO DAILY #90 tabs 08/19/25 tablet ferrous sulfate 325 mg (65 mg 325 mg PO DAILY #90 tabs 08/19/25 iron) tablet,delayed release mecobalamin (vitamin B12) 1,000 1,000 mcg sublingual BEDTIME #90 08/19/25 mcg disintegrating tabs tablet,sublingual metformin 1,000 mg tablet 1,000 mg PO BID #180 tabs 08/19/25 rosuvastatin 10 mg tablet 10 mg PO DAILY #90 tabs 08/19/25 Allergies Allergy/AdvReac Type Severity Reaction Status Date / Time strawberry (STRAWBERRY) Allergy Intermediate HIVES Verified 08/19/25 15:11 Penicillins Allergy Mild HIVES Verified 08/19/25 15:11 penicillin V Allergy Unknown Hives Verified 08/19/25 15:11 Review of Systems Constitutional: Constitutional: Denies body ache(s), Denies chills, Denies fever(s) and Denies headache(s) Eyes: Eyes: Denies blurry vision ENT: Denies vertigo, Denies dizziness and Denies headache(s) Cardiovascular: Cardiovascular: Denies chest pain and Denies dyspnea on exertion Respiratory: Respiratory: Denies cough and Denies dyspnea on exertion Gastrointestinal: Gastrointestinal: Reports abdominal pain and Denies vomiting Genitourinary: Genitourinary: Denies hematuria Musculoskeletal: Musculoskeletal: Denies back pain Integumentary/Breasts: Skin/Breast: Denies rash Neurologic: Denies vertigo, Denies dizziness and Denies headache(s) Psychiatric: Psychiatric: Denies anxiety [facility] Past Medical History Medical History (Updated 08/19/25 @ 23:46 by Gil Styles) Diabetes type 2 Leukocytosis Abdominal pain Mass of abdomen of single quadrant Family History Family History Father Cancer Mother Kidney failure COPD (chronic obstructive pulmonary disease) Lung cancer Social History Social History Housing: House Alcohol intake: current Alcohol intake frequency: does not drink Patient Tobacco Use Status: Never used Tobacco service: No Current occupational status: unemployed Cognitive needs: No Hearing needs: No 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) Physical Exam ED Vital Signs: Vital Signs - 24 hr 08/19/25 15:11 08/19/25 22:31 08/20/25 00:12 Temperature 98.6 F 98.1 F 98.1 F Pulse Rate 92 78 78 Respiratory Rate 18 15 15 Blood Pressure 188/95 H 183/95 H 183/95 H Pulse Oximetry 100 98 98 Oxygen Delivery Method Room Air Room Air Room Air BMI result Body Mass Index 20.4 Const General: healthy appearing, comfortable, no acute distress, alert and awake Nutritional Appearance: well nourished Orientation/consciousness: patient oriented x3 HENMT Head: Yes normocephalic and Yes atraumatic Throat: Yes posterior oropharynx normal Eyes Eyelids: Yes eyelids normal Conjunctivae: conjunctivae normal Sclerae: sclerae normal Corneas: corneas normal Pupils: Equal, round and reactive pupils present EOM: EOMs intact bilaterally Neck Neck: Yes full ROM Resp Effort & Inspection: normal respiratory effort, able to speak in complete sentences, no audible wheezes and not labored Auscultation: clear to auscultation bilaterally Cardio Rate: regular rate Rhythm: regular rhythm GI Other: Around to the left upper quadrant, left lower quadrant. There is a firm, soft tissue palpable mass in the left anterior axillary line below the level of the 12th rib. Measuring about 2 cm, firm, well demarcated and mobile. No overlying skin changes Inspection: No distended Palpation (GI): Soft to palpation, not firm, Tenderness to palpation present (GI), no guarding and not rigid Skin General skin exam: elasticity normal Neuro General: patient oriented x3 Cranial nerves: Yes Equal, round and reactive pupils present and Yes Bilaterally intact EOM present Cognition (Neuro): normal cognition Extrem Other: Moving all extremities well without any obvious deformities Course Course Course Narrative: RME: 50-year-old female sent by PCP for CAT scan to evaluate left for abdominal left flank mass/lump has been present for awhile. Patient has had 2 cat scans in the ultrasound that did not show any mass primary care provider sent patient to the ED for mother imaging. Medications Administered Discontinued Medications Generic Name Dose Route Start Last Admin Trade Name Joseluisq PRN Reason Stop Dose Admin Iohexol 100 ml 08/19/25 19:46 08/19/25 19:46 Iohexol 350 Mg/Ml 100 Ml Infus..Btl IV 08/19/25 19:47 85 ml ONCE ONE Administration Medical Decision Making Medical Decision Making [facility] Narrative: 50-year-old female presents for evaluation of abdominal pain. She has had multiple CAT scans in the last month. Apparently her primary doctor sent her in his requesting another CT scan of the abdomen pelvis stat due to a soft tissue mass. She does have a palpable soft tissue irregularity which could be a lymph node, hematoma. We will get the CT scan that her doctor requested. I did review her recent imaging including [address] scans, 2 separate ultrasounds, 1 pelvic, [address] The patient's labs show a chronic leukocytosis, a chronic anemia stable, microcytic. No significant left shift. No significant chemistry abnormalities warranting dimension. She was recently diagnosed with diabetes and her random glucose is 151. No evidence of DKA. Differential Diagnosis Differential Diagnoses: The differential diagnosis associated with the presentation includes Abdominal pain Soft tissue mass Lymphadenopathy Constipation Intramuscular hematoma Lab Data [facility] Lab Attestation statement: I reviewed the patient's lab results. As above 08/19/25 15:37 08/19/25 15:37 Labs: Lab Results 08/19/25 08/19/25 Range/Units 15:37 15:52 WBC 12.6 H (4.8-10.8) X10*3/uL RBC 4.84 (4.20-5.50) X10*6/uL Hgb 9.2 L (12.0-16.0) g/dl Hct 30.9 L (37.0-47.0) % MCV 63.8 L (80.0-98.0) fL MCH 19.0 L (27.0-33.0) pg MCHC 29.8 L (31.0-35.0) g/dl RDW 20.7 H (11.0-16.0) % Plt Count 585 H (160-400) X10*3/uL MPV 9.4 (9.4-12.3) fL Immature Gran % (Auto) 0.2 (0.0-0.4) % Neut % (Auto) 63.0 (45-73) % Lymph % (Auto) 27.9 (20-40) % Clinch % (Auto) 6.7 (2-11) % Eos % (Auto) 1.8 (0-4) % Baso % (Auto) 0.4 (0-2) % Lymph # (Auto) 3.5 (1.2-4.9) X10*3/uL Clinch # (Auto) 0.9 (0.1-1.2) X10*3/uL Eos # (Auto) 0.2 (0.0-0.4) X10*3/uL Baso # (Auto) 0.1 (0.0-0.2) X10*3/uL Abs Immat Gran (auto) 0.03 (0.00-0.03) X10*3/uL Absolute Neuts (auto) 7.9 (2.0-8.3) x10*3/uL Absolute Nucleated RBC 0.000 (0.0-0.012) X10*3/uL Nucleated RBC % (auto) 0.0 (0.0-0.2) /100WBC Sodium 139 (135-145) mmol/L Potassium 3.3 (3.3-5.1) mmol/L Chloride 102 (96-108) mmol/L Carbon Dioxide 30 H (22-29) mmol/L Anion Gap 10 L (12-20) BUN 6 L (9-16) mg/dL Creatinine 0.54 (0.5-1.4) mg/dL Estim Creat Clear Calc 118.7 Estimated GFR > 60 Random Glucose 151 H (60-115) mg/dL Calcium 9.1 (8.4-10.2) mg/dL Total Bilirubin 0.1 (0.0-1.0) mg/dL AST 19 (5-31) U/L ALT 13 (0-31) U/L Alkaline Phosphatase 83 (39-117) U/L Total Protein 8.1 H (6.5-8.0) g/dL Albumin 4.4 (3.5-5.0) g/dL Beta HCG, Quant < 2 mIU/mL Urine Color Yellow Urine Appearance Clear Urine pH 6.5 (5.0-9.0) Ur Specific Marshall <= 1.005 (1.005-1.025) Urine Protein Negative (Neg-Trace) mg/dL Urine Glucose (UA) Negative (Negative) mg/dL Urine Ketones Negative (Negative) mg/dL Urine Blood Negative (Negative) Urine Nitrite Negative (Negative) Ur Leukocyte Esterase Trace H (Negative) Urine RBC 0-2 (0-2) /HPF Urine WBC 0-5 (0-5) /HPF Ur Squamous Epith Cells 3-5 (0-2) /HPF Urine Bacteria None Seen (None Seen) Hyaline Casts 0-2 (0-2) /LPF Independent Interpretation I performed an independent interpretation of an: CT Scan Interpretation: Agree with Radiology interpretation Radiology Impression Discussion of test interpretation with radiology: I have reviewed the radiologist's reading. Radiologist Impression: Impression : Globular enlargement of the uterus, unchanged in size when compared to 07/23/2024. Differential diagnosis would include multiple fibroids, endometrial neoplasm with invasion of junctional zone, and adenomyosis. Few scattered bilateral subcentimeter short axis diameter internal iliac lymph nodes are present Consider tissue sampling and/or MRI with contrast This document has been electronically signed by: Demian Monzon MD on 08/19/2025 22:56:57 Discharge Plan Discharge Clinical Impression: Abdominal pain Patient Disposition: Home, Self-Care Instructions: Abdominal Pain (ED) Additional Instructions: Your CT scan showed an abnormal uterus, I recommend he follow up with your OBGYN appointment as scheduled. You have some lymph nodes that has likely what you are feeling in your abdomen. Follow up with your primary doctor return for new or worsening symptom Prescriptions: No Action ibuprofen 400 mg tablet 400 mg PO Q6H PRN (Reason: pain) Qty: 14 0RF metformin 1,000 mg tablet 1,000 mg PO BID Qty: 180 0RF rosuvastatin 10 mg tablet 10 mg PO DAILY Qty: 90 0RF mecobalamin (vitamin B12) 1,000 mcg tablet,disintegrating 1,000 mcg sublingual BEDTIME Qty: 90 0RF Rx Instructions: place tablet under tongue and allow to dissolve for at least30 secs before swallowing ascorbic acid (vitamin C) 500 mg tablet 500 mg PO DAILY Qty: 90 0RF ferrous sulfate 325 mg (65 mg iron) tablet,delayed release (DR/EC) 325 mg PO DAILY Qty: 90 0RF Interventions: ED Discharge Assessment Last Done: 08/20/25 00:12 Discharge Date/Time: 08/19/25 23:57 Print Language: [place]
[2025-08-19 15:58] LABS: MANUAL DIFF FLAG NO
[2025-08-19 16:03] LABS: Hematocrit 30.9 % (37.0-47.0); Hemoglobin 9.2 g/dl (12.0-16.0); Imm Gran Abs Auto 0.03 X10*3/uL (0.00-0.03); Imm Gran Pct Auto 0.2 % (0.0-0.4); Lymphocytes Absolute Auto 3.5 X10*3/uL (1.2-4.9); Mean Corpuscular HGB Conc 29.8 g/dl (31.0-35.0); Mean Corpuscular Hemoglobin 19.0 pg (27.0-33.0); NRBC Abs Auto 0.000 X10*3/uL (0.0-0.012); NRBC Pct Auto 0.0 /100WBC (0.0-0.2); Platelet Count 585 X10*3/uL (160-400); Red Blood Count 4.84 X10*6/uL (4.20-5.50); White Blood Count 12.6 X10*3/uL (4.8-10.8)
[2025-08-19 16:03] LABS: Appearance Urine Clear; Glucose Urine UA Negative (Negative); PH 6.5 (5.0-9.0); Specific Gravity - Urine <= 1.005 (1.005-1.025); UMIC TRIGGER UACC YES
[2025-08-19 16:35] LABS: Mean Corpuscular Volume 63.8 fL (80.0-98.0)
[2025-08-19 16:37] LABS: Alanine Aminotransferase 13 U/L (0-31); Albumin Level 4.4 g/dL (3.5-5.0); Alkaline Phosphatase 83 U/L (39-117); Anion Gap 10 (12-20); Aspartate Amino Transferase 19 U/L (5-31); Blood Urea Nitrogen 6 mg/dL (9-16); Calcium 9.1 mg/dL (8.4-10.2); Carbon Dioxide 30 mmol/L (22-29); Chloride 102 mmol/L (96-108); Creatinine Clr Calc Pharmacy 118.7; Estimated Glomerular Filt Rate > 60; Potassium 3.3 mmol/L (3.3-5.1); Sodium 139 mmol/L (135-145); Total Protein 8.1 g/dL (6.5-8.0)
[2025-08-19] MEDS: iohexoL 350 MG/ML 100 ML INFUS..BTL IV (19:46)
[2025-08-19 22:31] VITALS: BP 183/95; PULSE 78; RESP 15; TEMP 36.7; O2SAT 98
[2025-08-20 00:12] VITALS: BP 183/95; PULSE 78; RESP 15; TEMP 36.7; O2SAT 98
== END 2025-08-19 23:57 | disposition home or self-care (01) ==
PROVIDERS: Physician Assistant; Emergency Provider Emergency Medicine Emergency Medical Services; PCP Student in an Organized Health Care Education/Training Program
DX: R10.32 Left lower quadrant pain (principal); E11.9 Type 2 diabetes mellitus without complications; N13.30 Unspecified hydronephrosis; R10.22 Pelvic and perineal pain left side; Z79.84 Long term (current) use of oral hypoglycemic drugs; Z79.899 Other long term (current) drug therapy
CPT/HCPCS: 36415; 74177; 80053; 81001; 81003; 84702; 85025; 99284; 99285; Q9967

== ENCOUNTER → 2025-08-19 19:28 | Outpatient (BNV) | payer OTHER, SELFPAY | PROVIDERS: Emergency Provider Emergency Medicine Emergency Medical Services; PCP Student in an Organized Health Care Education/Training Program; Visit Provider Radiology Diagnostic Radiology | DX: N85.2 Hypertrophy of uterus (principal); R59.0 Localized enlarged lymph nodes | CPT/HCPCS: 74177 ==

== ENCOUNTER 2025-08-24 09:18 | Outpatient (AMB) | payer OTHER, SELFPAY ==
[2025-08-24 09:24] VITALS: BMI 20.4
--- NOTE | 2025-08-24 09:24 | MHC.OFFVIS ---
Vital Signs 08/24/25 09:24 Height 5 ft 8 in Weight 134 lb BMI 20.4 Intake Visit Reasons: Yearly Pap smear and left side ovary has assist on Belt Splicer Required: No Information Interpreted: non-clinical & clinical Freelance Web Designer: Freelance Web Designer Present (Janeen GURROLAA) Accompanied by: Self / Same As Patient Allergies strawberry (STRAWBERRY) Allergy (Intermediate, Verified 08/19/25 15:11) HIVES Penicillins Allergy (Mild, Verified 08/19/25 15:11) HIVES penicillin V Allergy (Unknown, Verified 08/19/25 15:11) Hives Is last menstrual period known: Yes Last menstrual period: 08/04/25 HPI Comments Details: Presenting referred from PCP regarding heavy menstrual cycles associated passage of blood clots H&H done recently showed ..9, the patient has been on iron sulfate TSH, hCG negative Last co testing in 2017 was negative according to patient no records available Last screening mammogram is in 2017 was negative according to the patient no records available, the patient is schedule for next screening mammogram in few weeks The patient was refer to GI for screening colonoscopy, the patient is a press of scheduling her next screening colonoscopy with GI CT scan done on 08/19/2025 showed the following: The liver density is homogeneous No biliary abnormalities The spleen is normal in size No pancreatic ductal dilatation No hydronephrosis Normal bowel caliber No secondary signs of acute appendicitis No free fluid/free air No vascular abnormalities. Few scattered internal iliac lymph nodes are present, example: 1.5 x 0.7 mm right internal iliac lymph node, image 64, series 2 Bladder outline is smooth. There is globular enlargement of the uterus measuring 9.2 x 7.8 x 11.0 cm. No suspicious skeletal lesions. Impression : Globular enlargement of the uterus, unchanged in size when compared to 07/23/2024. Differential diagnosis would include multiple fibroids, endometrial neoplasm with invasion of junctional zone, and adenomyosis. Few scattered bilateral subcentimeter short axis diameter internal iliac lymph nodes are present Consider tissue sampling and/or MRI with contrast [facility] Medical History (Updated 08/24/25 @ 09:48 by Sunday Jackson MD) Diabetes type 2 Leukocytosis Abdominal pain Mass of abdomen of single quadrant Surgical History (Updated 08/24/25 @ 09:32 by Janeen Tabor CMA) Hx of tubal ligation Hx of cholecystectomy Family History (Updated 08/24/25 @ 09:32 by Janeen Tabor CMA) Father Cancer Mother Kidney failure COPD (chronic obstructive pulmonary disease) Lung cancer Diabetes Social History (Updated 08/24/25 @ 09:33 by Janeen Tabor CMA) Household Members: None Housing: House Alcohol intake: current Alcohol intake frequency: does not drink Patient Tobacco Use Status: Never used Tobacco service: No Current occupational status: employed 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 Sexual orientation: Straight/Heterosexual Gender identity: Female Cognitive needs: No Hearing needs: No 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) Female Reproductive History Menstrual Age of Menarche: 10 Duration of menses: 3-5 days Date of last menstrual period: 08/04/25 Total pregnancies: 3 Full term: 3 Number of Living Children: 3 Review of Systems Const All systems reviewed & are unremarkable except as noted in HPI and below Card Reports as per HPI Resp Reports as per HPI GI Reports as per HPI and Reports no additional complaints Reports as per HPI Physical Exam Vital Signs: BMI result Body Mass Index 20.4 Const General: cooperative, healthy appearing and comfortable Chest Chest palpation & inspection: normal inspection of the chest and normal palpation of entire chest wall Breast/axilla inspection: normal inspection of the breasts and normal inspection of the axillae Breast/axilla palpation: normal palpation of the breasts, normal palpation of the axillae and no axillary lymphadenopathy Resp Effort & Inspection: normal respiratory effort Auscultation: clear to auscultation bilaterally Percussion: percussion normal Cardio Palpation: normal PMI Rate: regular rate Rhythm: regular rhythm Heart sounds: no murmurs and no rubs Peripheral pulses: Peripheral pulses 2+ throughout GI Inspection: Yes normal to inspection Palpation (GI): Soft to palpation, nontender, no guarding, not rigid and No hepatosplenomegaly present Percussion: Yes normal to percussion Auscultation: normal bowel sounds Rectal Exam - Female: deferred General: Yes bladder normal to palpation External Female Exam: No lesion Speculum Exam - Vagina: normal appearance of the vagina, normal palpation, normal vaginal discharge and not erythematous Speculum Exam - Cervix: normal appearance of the cervix and normal palpation Bimanual exam- vagina & uterus: normal bimanual exam, normal palpation, uterine size normal, bladder normal to palpation, consistency normal and normal palpation Bimanual Exam- Adnexa, other: normal adnexae, no masses and no tenderness Assessment & Plan Assessment & Plan (1) Abnormal uterine bleeding (AUB): Code(s): N93.9 - Abnormal uterine and vaginal bleeding, unspecified Category: Medical Plan: Co testing done, GC and chlamydia taken FSH/LH ordered. Discussed with the patient the different causes of abnormal bleeding including thyroid disorders, uterine and ovarian pathology, endometrial hyperplasia, carcinoma and other potential causes. Discussed with the patient the work up including FSH/LH, endometrial biopsy to r/o endometrial pathology. All questions answered and the patient verbalized understanding. Instructed the patient to schedule an appointment for an endometrial biopsy in 2 weeks. (2) Lymph node enlargement: Comment: Iliac lymph node enlargement by CT scan Code(s): R59.9 - Enlarged lymph nodes, unspecified Category: Medical Plan: PCP is doing the workup forthe enlarged lymph nodes, will proceed with endometrial biopsy to rule out endometrial pathology Orders: Orders HPV High risk Today Z00.00 - Encounter for general adult medical examination without abnormal findings Pap Smear Today Z00.00 - Encounter for general adult medical examination without abnormal findings CT NG by PCR Vag/Cerv Today Z11.3 - Encounter for screening for infections with a predominantly sexual mode of transmission Lutenizing Hormone Today N93.9 - Abnormal uterine and vaginal bleeding, unspecified Follicle Stimulating Hormone Today N93.9 - Abnormal uterine and vaginal bleeding, unspecified Coding Level of Care Code New Pt Level 3 (02956) Diagnoses Abnormal uterine bleeding (AUB) N93.9 Lymph node enlargement R59.9
== END 2025-08-24 09:49 | disposition home or self-care (01) ==
LOC: HO.HWS 09:19
PROVIDERS: PCP Student in an Organized Health Care Education/Training Program; Visit Provider Obstetrics & Gynecology
DX: N93.9 Abnormal uterine and vaginal bleeding, unspecified (principal); R59.9 Enlarged lymph nodes, unspecified
CPT/HCPCS: 99203

== ENCOUNTER 2025-08-24 09:18 | Outpatient (REF) | payer OTHER, SELFPAY | END 2025-08-24 09:19 | disposition home or self-care (01) | LOC: HO.LNP 09:18 | PROVIDERS: PCP Student in an Organized Health Care Education/Training Program; Visit Provider Obstetrics & Gynecology | DX: N93.9 Abnormal uterine and vaginal bleeding, unspecified (principal); R59.9 Enlarged lymph nodes, unspecified; Z11.51 Encounter for screening for human papillomavirus (HPV); Z98.51 Tubal ligation status | CPT/HCPCS: 87626; 88175; 99202 ==

== ENCOUNTER 2025-08-24 09:52 | Outpatient (REF) | payer OTHER, SELFPAY ==
[2025-08-25 12:13] LABS: Follicle Stimulating Hormone 4.5 mIU/mL
[2025-08-25 15:24] LABS: CT PCR NOT DETECTED (Not Detect.); NG PCR NOT DETECTED (Not Detect.)
== END 2025-08-24 09:53 | disposition home or self-care (01) ==
LOC: HO.LAB 09:52
PROVIDERS: PCP Student in an Organized Health Care Education/Training Program; Visit Provider Obstetrics & Gynecology
DX: Z00.00 Encounter for general adult medical examination without abnormal findings (principal); N93.9 Abnormal uterine and vaginal bleeding, unspecified; Z20.2 Contact with and (suspected) exposure to infections with a predominantly sexual mode of transmission
CPT/HCPCS: 36415; 83001; 83002; 87491; 87591

== ENCOUNTER 2025-08-26 15:58 | Outpatient (AMB) | payer OTHER, SELFPAY ==
[2025-08-26 16:13] VITALS: BP 161/88; PULSE 94; TEMP 36.7; O2SAT 98; BMI 20.4
--- NOTE | 2025-08-26 16:13 | A.OFFPC_ITS ---
Vital Signs 08/26/25 16:13 Height 5 ft 8 in Weight 134 lb 6 oz BMI 20.4 BP 161/88 H Blood Pressure Location Lt brachial Position Sitting Pulse 94 Pulse Source Pulse Oximeter Temp 98.1 F Temp Source Oral Pulse Oximetry (%) 98 Oxygen Delivery Method Room Air Intake Visit Reasons: follow up Local Operator Required: No Accompanied by: Self / Same As Patient Allergies strawberry (STRAWBERRY) Allergy (Intermediate, Verified 08/26/25 16:14) HIVES Penicillins Allergy (Mild, Verified 08/26/25 16:14) HIVES Tobacco use date assessed: 08/26/25 Dental Screening Dental Screen Date: 08/26/25 Did you have a dental visit in the last 12 months?: Yes Did you have a dental problem in the last 6 months where you did not have access to dental care?: No Was dental information given to patient?: Patient has dentist HPI HPI Comments History of Present Illness Details History of Present Illness The patient is a 50-year-old female presenting with management of diabetes mellitus, evaluation of lymphadenopathy, and investigation of an abdominal mass. Diabetes Mellitus: - The patient reports improvement in sym ptoms since starting metformin, although she is not yet at her baseline health status. - She denies any issues with constipatio n and reports regular bowel movements. - The patient has been managing her cond ition with metformin and vitamins, noting a reduction in periorbital edema. Lymphadenopathy: - The patient has been scheduled for MRI to evaluate lymph node enlargement noted on CT scan. - There is a suspicion of iliac lymph no de enlargement, and further workup is planned. Suspected Endometrial Pathology: - The patient is scheduled for an endome trial biopsy to rule out endometrial pathology. - Blood work has been conducted, and res ults are pending. Abdominal Mass: - The patient reports a palpable mass in the abdomen, which becomes more pronounced throughout the day. - The mass is described as sausage-like and is associated with pain radiating to the lower back. - An MRI has been ordered to further inv estigate the mass. Review of Systems - Gastrointestinal: Denies constipation, reports regular bowel movements. - Musculoskeletal: Reports abdominal clarisa n with radiation to the lower back. 10-point ROS reviewed and negative excep t as noted in HPI Past Medical History - Diabetes Mellitus, managed with metfor min. Health Maintenance - Scheduled endometrial biopsy for suspe cted pathology. - MRI pelvis ordered for further evaluat ion of abdominal mass. Physical Exam General: Well-appearing, in no acute distress. Vital signs: Within normal limits. HEENT: Normocephalic, atraumatic. PERRLA, EOMI. Conjunctiva clear, sclera anicteric. Oropharynx clear, mucous membranes moist. TMs intact bilaterally. Neck: Supple, no lymphadenopathy, no thyromegaly, no JVD or carotid bruits. Cardiovascular: RRR, normal S1/S2, no murmurs, rubs, or gallops. Peripheral pulses 2+ and symmetric. No edema. Respiratory: Lungs clear to auscultation bilaterally, no wheezes, rales, or rh onchi. Normal effort. Abdomen: Soft, non-tender, non-distended. Normoactive bowel sounds. No hepatosplenomegaly, no masses. Notable for iliac lymph node enlargement by CT scan. MSK: Full range of motion, no joint swelling or deformity. Normal gait. Skin: Warm, dry, intact. No rashes, lesions, or pallor. Port-wine stain on the left cheek Neuro: Alert and oriented x3. Cranial nerves II-XII intact. Strength 5/5 throughout. Sensation intact. Reflexes 2+ symmetric. Normal coordination and gait. Psych: Appropriate mood and affect. Normal judgment and insight. Plan 1. Diabetes Mellitus - Continue current management with metfo rmin and monitor symptoms. 2. Lymphadenopathy - Proceed with scheduled biopsy to evalu ate lymph node enlargement. 3. Suspected Endometrial Pathology - Perform endometrial biopsy to rule out pathology. 4. Abdominal Mass - MRI pelvis ordered to further investig ate the abdominal mass. - Referral to general surgery for furthe r evaluation. Discussion Notes During the visit, we discussed the management of diabetes mellitus with metformin and the need for ongoing monitoring. We reviewed the plan for a biopsy to evaluate lymphadenopathy and the potential for endometrial pathology. The patient was informed about the MRI pelvis to investigate the abdominal mass and the referral to general surgery for further evaluation. We emphasized the importance of follow-up and the need to seek emergency care if symptoms worsen. Patient was informed and verbally consented to the use of an ambient scribe for clinic note documentation during this visit. Patient Instructions - Continue taking metformin as prescribe d. - Attend scheduled biopsy and MRI appoin tments. - Follow up with general surgery as advi sed. - Seek emergency care if symptoms worsen . Total time spent caring for the patient today was 45 minutes. This includes time spent before the visit reviewing the chart, time spent documenting, and time spent reviewing laboratory results, diagnostic imaging, medications, performing a medically necessary evaluation, counseling on diagnoses, care coordination, ordering appropriate tests, ordering appropriate medications, review of tests performed by other providers, reporting test results with the patient. 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 1. Little interest or pleasure in doing things: nearly every day 2. Feeling down, depressed, or hopeless: not at all 3. Trouble falling or staying asleep, or sleeping too much: not at all 4. Feeling tired or having little energy: several days 5. Poor appetite or overeating: not at all 6. Feeling bad about yourself - or that you are a failure or have let yourself or your family down: not at all 7. Trouble concentrating on things, such as reading the newspaper or watching television: not at all 8. Moving or speaking so slowly that other people could have noticed. Or the opposite - being so fidgety or restless that you have been moving around a lot more than usual: not at all 9. Thoughts that you would be better off or of hurting yourself in some way: not at all Total score: 4 Source: Developed by Drs. Nakul Gaytan, Gareth Gillespie and colleagues, with an educational johny from [employer]. Thrive Questionnaire Date Thrive assessed: 08/26/25 I am a: Patient What is your living situation today?: I have a steady place to live Within the past 12 months, did the food you bought not last and you didn't have the money to get more?: Never true Within the past 12 months, did you worry whether your food would run out before you got money to buy more?: I choose not to answer this question Do you have trouble paying for medicines?: No Do you have trouble getting transportation to medical appointments?: No Do you have trouble paying your heating and electricity bill?: No Do you have trouble taking care of your child, family member or friend?: No Do you have trouble with day-to-day activities such as bathing, preparing meals, shopping, managing finances, etc.?: No Are you currently unemployed and looking for a job?: No Are you interested in more education?: No Please select the resources that you would like help with: None Currently or been in a relationship where the following occur: No concerns reported THRIVE Score: 0 AUDIT C Alcohol Use Questionnaire (AUDIT-C) 1. How often do you have a drink containing alcohol?: Never 3. How often do you have six or more drinks on one occasion?: Never Total Score: 0 JANEE-7 AMB Questionnaire JANEE-7 Date JANEE - 7 assessed: 08/26/25 Feeling nervous, anxious, or on edge: 1 = Several days Not being able to stop or control worryin = Not at all Worrying too much about different things: 0 = Not at all Trouble relaxin = Several days Being so restless that it is hard to sit still: 1 = Several days Becoming easily annoyed or irritable: 0 = Not at all Feeling afraid as if something awful might happen: 0 = Not at all Total JANEE-7 score (0-4 normal; 5-9 mild; 10-14 moderate; 15-21 severe): 3 Source: Developed by Drs. Nakul Gaytan, Gareth Gillespie and colleagues, with an educational johny from [employer]. Physical exam (Primary Care) Vital Signs: Last Vital Signs Temp 98.1 F 08/26/25 16:13 Pulse 94 08/26/25 16:13 BP 161/88 H 08/26/25 16:13 Pulse Ox 98 08/26/25 16:13 Oxygen Delivery Method Room Air 08/26/25 16:13 BMI result Body Mass Index 20.4 Tobacco/Smoking Status: Tobacco use Status Tobacco use date assessed 08/26/25 08/26/25 16:16 Patient Tobacco Use Status Never used Tobacco 08/26/25 16:16 PHQ-9: PHQ-9 Score PHQ-9: Total score 4 08/26/25 16:16 Thrive Assessment: Date of Thrive Assessment Date Thrive assessed 08/26/25 08/26/25 16:16 Currently or been in a relationship where the following occur: No concerns reported Coding Level of Care Code Est Pt Level 4 (12698) Diagnoses Diabetes type 2 E11.9 Mass of abdomen of single quadrant R19.00 Abdominal pain R10.9 Leukocytosis D72.829 Lymph node enlargement R59.9 Assessment & Plan Assessment & Plan (1) Diabetes type 2: Code(s): E11.9 - Type 2 diabetes mellitus without complications Category: Medical (2) Mass of abdomen of single quadrant: Code(s): R19.00 - Intra-abdominal and pelvic swelling, mass and lump, unspecified site Category: Medical (3) Abdominal pain: Code(s): R10.9 - Unspecified abdominal pain Category: Medical (4) Leukocytosis: Code(s): D72.829 - Elevated white blood cell count, unspecified Category: Medical (5) Lymph node enlargement: Comment: Iliac lymph node enlargement by CT scan Code(s): R59.9 - Enlarged lymph nodes, unspecified Category: Medical Plan Orders: Referrals General Surgery Referral R19.00 - Intra-abdominal and pelvic swelling, mass and lump, unspecified site, R59.9 - Enlarged lymph nodes, unspecified
== END 2025-08-26 17:04 | disposition home or self-care (01) ==
LOC: HO.HMCFMS 15:59
PROVIDERS: PCP Student in an Organized Health Care Education/Training Program; Visit Provider Student in an Organized Health Care Education/Training Program
DX: E11.9 Type 2 diabetes mellitus without complications (principal); R19.00 Intra-abdominal and pelvic swelling, mass and lump, unspecified site; R10.9 Unspecified abdominal pain; D72.829 Elevated white blood cell count, unspecified; R59.9 Enlarged lymph nodes, unspecified

== ENCOUNTER → 2025-08-26 15:58 | Outpatient (BNVA) | payer OTHER, SELFPAY | PROVIDERS: PCP Student in an Organized Health Care Education/Training Program; Visit Provider Student in an Organized Health Care Education/Training Program | DX: E11.9 Type 2 diabetes mellitus without complications (principal); R19.00 Intra-abdominal and pelvic swelling, mass and lump, unspecified site; R10.9 Unspecified abdominal pain; D72.829 Elevated white blood cell count, unspecified; R59.0 Localized enlarged lymph nodes; Z79.84 Long term (current) use of oral hypoglycemic drugs; Z13.30 Encounter for screening examination for mental health and behavioral disorders, unspecified; Z13.39 Encounter for screening examination for other mental health and behavioral disorders | CPT/HCPCS: 99212 ==

== ENCOUNTER 2025-09-09 14:18 | Outpatient (AMB) | payer OTHER, SELFPAY ==
--- NOTE | 2025-09-09 14:34 | A.OFFVIS_ITS ---
Vital Signs 09/09/25 14:50 Height 5 ft 8 in Weight 134 lb BMI 20.4 Intake Visit Reasons: emb Team Supervisor Required: No Information Interpreted: non-clinical & clinical Training Administrator: Training Administrator Present (Janeen PABLO) Accompanied by: Self / Same As Patient Allergies strawberry (STRAWBERRY) Allergy (Intermediate, Verified 09/09/25 14:51) HIVES Penicillins Allergy (Mild, Verified 09/09/25 14:51) HIVES Is last menstrual period known: Yes HPI Comments Details: Presenting for EMB [facility] Medical History Diabetes type 2 Leukocytosis Abdominal pain Mass of abdomen of single quadrant Surgical History Hx of tubal ligation Hx of cholecystectomy Family History Father Cancer Mother Kidney failure COPD (chronic obstructive pulmonary disease) Lung cancer Diabetes Social History Household Members: None Housing: House Alcohol intake: current Alcohol intake frequency: does not drink Patient Tobacco Use Status: Never used Tobacco service: No Current occupational status: employed 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 hysteroscopy D&C) & the risks were discussed with the patient including but not limited: pain, uterine perforation, bleeding, infection, possible injury to bladder, bowel, ureter, possible need for blood transfusion with all its possible risks. The patient verbalized understanding all questions answered and signed consent. Urine test done in the office was negative The patient was placed into the dorsal lithotomy position; a speculum was inserted in the vagina. Using aseptic technique for the procedure, the cervix was cleansed with Betadine. The anterior lip of the cervix was grasped with a single tooth tenaculum. The uterus was sounded to 7 cm with a 4 mm Pipelle was used. Tissues samples were obtained and placed in formalin, in a patient labeled container and sent to the pathology department. At the end of the procedure, there was minimal bleeding noted The patient tolerated the procedure well and was discharged in good condition with the following instructions: Nothing in the vagina until the bleeding stops. No sex until the bleeding stops, to call if any of the following occurs: fever (>100.4), flu-like symptoms, abdominal pain, heavy bleeding, four smelling vaginal discharge. The patient was instructed to schedule a Follow up appointment in 2 weeks to discuss pathology results of the biopsy and treatment options. This note was generated with a voice recognition program. Some errors may have been overlooked during the review of this note. Sometimes these errors may affect the content or meaning of a given sentence. [id number] Biopsy Results AMB Test Urine AMB Test Urine Negative Last Edit by Janeen Tabor CMA on 14:51 Results Reviewed Results Reviewed: Laboratory Last Values Tst Clinic Negative 09/09/25 14:51 Assessment & Plan Assessment & Plan (1) Abnormal uterine bleeding (AUB): Code(s): N93.9 - Abnormal uterine and vaginal bleeding, unspecified Category: Medical Plan: EMB done, see procedure note Orders: Orders AMB HCG Urine Test Today Z32.02 - Encounter for test, result negative AMB Endometrial Biopsy Today N93.9 - Abnormal uterine and vaginal bleeding, unspecified Coding Level of Care Code Procedure Only Diagnoses Abnormal uterine bleeding (AUB) N93.9 CPT Codes Endometrial Biopsy - CPT: 40142-[id number] Biopsy ([id number])
[2025-09-09 14:50] VITALS: BMI 20.4
== END 2025-09-09 15:03 | disposition home or self-care (01) ==
LOC: HO.HWS 14:18
PROVIDERS: PCP Student in an Organized Health Care Education/Training Program; Visit Provider Obstetrics & Gynecology
DX: N93.9 Abnormal uterine and vaginal bleeding, unspecified (principal); Z32.02 Encounter for pregnancy test, result negative
CPT/HCPCS: 58100

== ENCOUNTER 2025-09-09 14:18 | Outpatient (REF) | payer OTHER, SELFPAY | END 2025-09-09 14:19 | disposition home or self-care (01) | LOC: HO.LNP 14:18 | PROVIDERS: PCP Student in an Organized Health Care Education/Training Program; Visit Provider Obstetrics & Gynecology | DX: Z32.02 Encounter for pregnancy test, result negative (principal); N93.9 Abnormal uterine and vaginal bleeding, unspecified | CPT/HCPCS: 58100; 81025; 88305 ==

== ENCOUNTER → 2025-09-24 15:25 | Outpatient (BNV) | payer OTHER, SELFPAY | PROVIDERS: PCP Student in an Organized Health Care Education/Training Program; Visit Provider Radiology Diagnostic Radiology | DX: R59.9 Enlarged lymph nodes, unspecified (principal) | CPT/HCPCS: 72197 ==

== ENCOUNTER 2025-09-24 15:28 | Outpatient (REF) | payer OTHER, SELFPAY ==
--- NOTE | ~2025-09-24 | MR_ITS ---
CLINICAL HISTORY: R59.9 - Enlarged lymph nodes, unspecified Exam: MRI of the pelvis, including gadolinium enhanced imaging. Comparison: CT abdomen 08/19/2025. Findings: Uterus measures 10.0 cm craniocaudad dimension, 7.0 cm AP dimension and 7.9 cm transverse dimension. Transition zone appears to be thickened with multifocal small T2 hyperintense cystic foci, measuring up to 2 cm thickness (measured on 3; 12), findings compatible with adenomyosis. There is a poorly defined heterogeneous filling defect within endometrial cavity extending to the posterior myometrium measuring up to 4.3 cm craniocaudad dimension and 2.1 cm AP dimension (3; 12, also seen on 12; 12, and up to 3.3 cm transverse dimension (6; 15). Primary differential considerations include large subserosal fibroid although endometrial mass/neoplasm can not be excluded. There appears to be a small posterior intramural fibroid measuring up to 12 mm (3; 13). No other definable myometrial or endometrial lesions appreciated. Left ovary is not well delineated although appears to measure up to 17 mm, with subcentimeter cyst or follicles (4; 10 and 2; 11). Right ovary is not well delineated although appears to measure up to 3.3 cm (2; 16). No definable adnexal lesions. No free pelvic fluid. Urinary bladder is free of gross filling defects. Small right iliac nodes measuring up to 1 cm (4; 13) and 13 mm (4; 10) appears similar. No new or increasing pelvic masses or adenopathy. Osseous structures reveal no destructive osseous lesions. Impression: 1. Thickened uterine transition zone with small cystic foci, compatible with adenomyosis. 2. Lobulated filling defect within the endometrial cavity extending to the posterior myometrium, primary differential considerations include irregular submucosal fibroid or endometrial mass. This document has been electronically signed by: Billy Clifford MD on 09/28/2025 15:55:39
== END 2025-09-24 15:29 | disposition home or self-care (01) ==
LOC: HO.MRI 15:28
PROVIDERS: PCP Student in an Organized Health Care Education/Training Program; Visit Provider Student in an Organized Health Care Education/Training Program
DX: R59.9 Enlarged lymph nodes, unspecified (principal); D72.829 Elevated white blood cell count, unspecified; N93.9 Abnormal uterine and vaginal bleeding, unspecified; R10.9 Unspecified abdominal pain; D21.9 Benign neoplasm of connective and other soft tissue, unspecified; N80.03 Adenomyosis of the uterus
CPT/HCPCS: 72197; A9585

== ENCOUNTER 2025-09-28 15:55 | Outpatient (REF) | payer OTHER, SELFPAY | END 2025-09-28 15:56 | disposition home or self-care (01) | LOC: HO.MAMMO 15:55 | PROVIDERS: PCP Student in an Organized Health Care Education/Training Program; Visit Provider Student in an Organized Health Care Education/Training Program | DX: Z12.31 Encounter for screening mammogram for malignant neoplasm of breast (principal) | CPT/HCPCS: 77063; 77067 ==

== ENCOUNTER → 2025-09-28 16:00 | Outpatient (BNV) | payer OTHER, SELFPAY | PROVIDERS: PCP Student in an Organized Health Care Education/Training Program; Visit Provider Internal Medicine | DX: Z12.31 Encounter for screening mammogram for malignant neoplasm of breast (principal) | CPT/HCPCS: 77063; 77067 ==

== ENCOUNTER 2025-09-30 09:32 | Outpatient (AMB) | payer OTHER, SELFPAY ==
--- NOTE | 2025-09-30 09:42 | A.OFFVIS_ITS ---
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 The following workup was done.: H&H= 9.2/30.9 TSH, hCG, GC and chlamydia were negative. FSH/LH 4.5/5 Endometrial biopsy pathology showed the following: Benign disordered proliferative endometrium with focal ectatic vessels and focal stromal collapse; no atypia or carcinoma Co testing was done was negative. Mammogram was negative. Pelvic ultrasound showed the following: IMPRESSION: 1. Bulky and heterogeneous myometrium, without discrete fibroid able to be measured. 2. 10 mm endometrial stripe. 3. Normal ovaries bilaterally. CT abd pelvis: Impression : Globular enlargement of the uterus, unchanged in size when compared to 07/23/2024. Differential diagnosis would include multiple fibroids, endometrial neoplasm with invasion of junctional zone, and adenomyosis. Few scattered bilateral subcentimeter short axis diameter internal iliac lymph nodes are present Consider tissue sampling and/or MRI with contrast 09/28/2025 pelvic MRI showed the following: Impression: 1. Thickened uterine transition zone with small cystic foci, compatible with adenomyosis. 2. Lobulated filling defect within the endometrial cavity extending to the posterior myometrium, primary differential considerations include irregular submucosal fibroid or endometrial mass PFSH Medical History Diabetes type 2 Leukocytosis Abdominal pain Mass of abdomen of single quadrant Surgical History Hx of tubal ligation Hx of cholecystectomy Family History Father Cancer Mother Kidney failure COPD (chronic obstructive pulmonary disease) Lung cancer Diabetes Social History Household Members: None Housing: House Alcohol intake: current Alcohol intake frequency: does not drink Patient Tobacco Use Status: Never used Tobacco service: No Current occupational status: employed 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 Sexual orientation: Straight/Heterosexual Gender identity: Female Cognitive needs: No Hearing needs: No 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) Female Reproductive History Menstrual Age of Menarche: 10 Physical Exam Vital Signs: Last Vital Signs BP 148/96 H 09/30/25 09:45 BMI result Body Mass Index 20.4 Assessment & Plan Assessment & Plan (1) Abnormal uterine bleeding (AUB): Code(s): N93.9 - Abnormal uterine and vaginal bleeding, unspecified Category: Medical Plan: Discussed with the patient the results of the work up done and options of treatment including Lysteda, BCP's, Mirena IUD, endometrial ablation and hysterectomy. All pros, cons, risks and benefits if each option was discussed with the patient and the patient decided to proceed with definitive surgical management, hysterectomy. Discussed with the patient the different types of hysterectomies including, vaginal, laparoscopic assisted vaginal, robotic assisted laparoscopic,& abdominal with BSO. All pros, cons, r/b of each approach were discussed the patient including evidence that morbidity is less and recovery is shorter with minimally invasive approaches to hysterectomy. Discussed with the patient the lack of availability of the robot [email or web address] robot and/or minimally invasive seal mixing operator specialist at [facility]. Will refer to [facility] minimally invasive railroad conductor surgery. Instructed the patient to call our office back in case a referral appointment is not scheduled, missed or canceled so that we will assist on rescheduling another appointment, the patient verbalized understanding agreed with the plan. (2) Endometrial mass: Code(s): N94.89 - Other specified conditions associated with female genital organs and menstrual cycle Category: Medical Plan: Discussed with the patient the finding on pelvic MRI differential diagnosis, recommended hysteroscopy D&C possible polypectomy myomectomy to identify the endometrial mass. The patient would like to proceed with a hysterectomy instead. All questions answered, the patient verbalized understanding Coding Level of Care Code Est Pt Level 3 (50167) Diagnoses Abnormal uterine bleeding (AUB) N93.9 Endometrial mass N94.89
[2025-09-30 09:45] VITALS: BP 148/96; BMI 20.4
== END 2025-09-30 10:38 | disposition home or self-care (01) ==
LOC: HO.HWS 09:33
PROVIDERS: PCP Student in an Organized Health Care Education/Training Program; Visit Provider Obstetrics & Gynecology
DX: N93.9 Abnormal uterine and vaginal bleeding, unspecified (principal); N94.89 Other specified conditions associated with female genital organs and menstrual cycle
CPT/HCPCS: 99213

== ENCOUNTER → 2025-09-30 09:32 | Outpatient (BNVA) | payer OTHER, SELFPAY | PROVIDERS: PCP Student in an Organized Health Care Education/Training Program; Visit Provider Obstetrics & Gynecology | DX: N93.9 Abnormal uterine and vaginal bleeding, unspecified (principal); N94.89 Other specified conditions associated with female genital organs and menstrual cycle | CPT/HCPCS: 99212 ==

== ENCOUNTER 2025-10-06 11:07 | Outpatient (AMB) | payer OTHER, SELFPAY ==
[2025-10-06 11:21] VITALS: BP 133/72; PULSE 94; BMI 19.8
--- NOTE | 2025-10-06 11:21 | A.OFFVIS_ITS ---
Vital Signs 10/06/25 11:21 Height 5 ft 8 in Weight 130 lb 8 oz BMI 19.8 BP 133/72 Blood Pressure Location Rt brachial Position Sitting Pulse 94 Intake Visit Reasons: Enlarged lymph nodes, unspecified Intake Note: Patient was referred by Tavo Weinstein MD for an assessment for enlarged lymph nodes. Pt c/o; Onset 3 months, reports she has been having pain for the past 3 months, reports LLQ mass and enlarged lymph nodes. DI: 08/19/25: Abd/pelvis CT 09/28/25: Pelvis MRI Conference Interpreter Required: No Accompanied by: Self / Same As Patient Allergies strawberry (STRAWBERRY) Allergy (Intermediate, Verified 10/06/25 11:30) HIVES Penicillins Allergy (Mild, Verified 10/06/25 11:30) HIVES HPI HPI Enlarged lymph nodes, unspecified: Details: [age] year old female referred for an abdominal wall mass on the left upper quadrant. She says she has had felt this for more than 3 months now. She did have a CAT scan done last July and August 2025 which did not reveal any mass on this area. She says that she feels the mass more when she is standing up. She also says that this area is tender to touch. She also has heavy bleeding from her periods and has been noted to have a large fibroid in the uterus or question of a uterine mass. She says that because of her bleeding, she wants to undergo hysterectomy and she has during this up with a airplane fueler. 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 Sexual orientation: Straight/Heterosexual Gender identity: Female Cognitive needs: No Hearing needs: No 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) Female Reproductive History Menstrual Age of Menarche: 10 Review of Systems Const Denies chills and Denies fever(s) Card Denies chest pain, Denies dyspnea and Denies dyspnea on exertion Resp Denies cough, Denies dyspnea and Denies dyspnea on exertion GI Denies hematochezia and Denies change in bowel habits Details: Heavy periods Denies hematuria Musc Denies back pain and Denies limited range of motion Neuro Denies focal weakness and Denies convulsions Psych Denies depression and Denies mood swings Physical Exam Const General: comfortable and no acute distress Orientation/consciousness: patient oriented x3 Neck Neck: Yes no lymphadenopathy Resp Auscultation: clear to auscultation bilaterally Cardio Rhythm: regular rhythm GI Other: Vague mass/protuberant in the left upper quadrant, tender to touch Palpation (GI): Soft to palpation, nontender and no guarding Neuro General: patient oriented x3 Assessment & Plan Assessment & Plan (1) Abdominal wall mass of left upper quadrant: Code(s): R19.02 - Left upper quadrant abdominal swelling, mass and lump Category: Medical Plan: She has this tender area with a question of a mass in the left upper quadrant on examination. I have reviewed her previous imaging studies including CAT scans last July and August 2025. I did not see any mass on this area or any abdominal wall pathology I am going to order for an ultrasound of this area I will need to see her back in the office after that. She is also arranged to see a airplane fueler for hysterectomy in view of the question of a uterine mass versus large fibroid with associated heavy menstrual periods. Orders: Orders US abdomen limited Today R19.02 - Left upper quadrant abdominal swelling, mass and lump Coding Level of Care Code New Pt Level 3 (39044) Diagnoses Abdominal wall mass of left upper quadrant R19.02
== END 2025-10-06 11:45 | disposition home or self-care (01) ==
LOC: HO.HGS 11:08
PROVIDERS: PCP Student in an Organized Health Care Education/Training Program; Visit Provider Surgery
DX: R19.02 Left upper quadrant abdominal swelling, mass and lump (principal)
CPT/HCPCS: 99203

== ENCOUNTER → 2025-10-06 11:07 | Outpatient (BNVA) | payer OTHER, SELFPAY | PROVIDERS: PCP Student in an Organized Health Care Education/Training Program; Visit Provider Surgery | DX: R19.02 Left upper quadrant abdominal swelling, mass and lump (principal) | CPT/HCPCS: 99202 ==

== ENCOUNTER 2025-11-12 12:39 | Outpatient (REF) | payer OTHER, SELFPAY | END 2025-11-12 12:40 | disposition home or self-care (01) | LOC: HO.HKASLDS 12:39 | PROVIDERS: PCP Student in an Organized Health Care Education/Training Program; Visit Provider Student in an Organized Health Care Education/Training Program | DX: E11.9 Type 2 diabetes mellitus without complications (principal); D64.9 Anemia, unspecified; R10.12 Left upper quadrant pain; R19.02 Left upper quadrant abdominal swelling, mass and lump; R59.9 Enlarged lymph nodes, unspecified; D25.9 Leiomyoma of uterus, unspecified | CPT/HCPCS: 99212 ==

== ENCOUNTER 2025-11-12 12:39 | Outpatient (AMB) | payer OTHER, SELFPAY ==
--- NOTE | 2025-11-12 12:52 | MHC.PC.OV ---
Vital Signs 11/12/25 12:57 Height 5 ft 8 in Weight 137 lb 4 oz BMI 20.9 BP 161/77 H Blood Pressure Location Lt brachial Position Sitting Respiration 18 Pulse 82 Pulse Source Pulse Oximeter Temp 97.9 F Temp Source Oral Pulse Oximetry (%) 99 Oxygen Delivery Method Room Air Intake Visit Reasons: 3 month f/u Intake Note: Patient present for 3 month follow up. Setter Off Required: No Accompanied by: Self / Same As Patient Allergies strawberry (STRAWBERRY) Allergy (Intermediate, Verified 11/12/25 12:56) HIVES Penicillins Allergy (Mild, Verified 11/12/25 12:56) HIVES Medication List - Last Reconciled 11/13/25 by Tavo Weinstein MD ascorbic acid (vitamin C) (Vitamin C) 500 mg PO DAILY cyanocobalamin (vitamin B-12) 1,000 mcg sublingual DAILY ferrous sulfate 325 mg PO DAILY ibuprofen 400 mg PO Q6H PRN metformin 1,000 mg PO BID rosuvastatin 10 mg PO DAILY Tobacco use date assessed: 08/26/25 Dental Screening Dental Screen Date: 08/26/25 HPI HPI Comments History of Present Illness Details History of Present Illness The patient is a 50 year old female presenting for follow-up on persistent abdominal pain and to discuss management of uterine fibroids and mass. Uterine Fibroid and Mass: The patient has a known large uterine fibroid and a uterine mass identified on a pelvic MRI. A uterine biopsy was performed and returned normal, but she is concerned that the biopsy may have sampled the uterus instead of the mass, as the ANTIQUE CLOCKS REPAIRER was uncertain if they could visualize or reach the mass. The ANTIQUE CLOCKS REPAIRER offered hormonal control or another biopsy with a risk of hemorrhage, both of which she declined, opting instead for a hysterectomy. She has experienced difficulties with insurance preauthorization for the surgery and feels she is getting the runaround from her specialists. Abdominal Pain: The patient reports persistent pain, which she localizes to the left upper quadrant and which is sometimes severe enough to prevent her from getting out of bed. A general surgeon suggested the pain could be from a pulled muscle or constipation. The surgeon reviewed prior CT scans from July and August, which did not show a mass in that area, and ordered an abdominal ultrasound for further evaluation, scheduled for December 06. Anemia: The patient has a history of anemia, believed to be related to her uterine fibroids. She reports associated symptoms including always feeling cold and having freezing feet at night. Surgical History: - Uterine biopsy Medications: - Metformin: Patient reports this medication helps her energy levels. Social History: - Employment: Patient is a [employer]. - Functional Status: Activity is limited due to pain; she primarily goes to work and then returns home. Diagnostic Results: - Uterine biopsy: Normal. - Pelvic MRI: Findings included a uterine fibroid and a mass. - CT scans (July, August): No mass or abdominal wall pathology was seen in the area of her pain. - Retroperitoneal ultrasound: Normal kidneys and bladder, no hydronephrosis. - Mammogram: Normal, repeat in one year. Past Medical History - Uterine fibroids - Uterine mass - Anemia, secondary to fibroids Health Maintenance - Mammogram: Last mammogram was normal, with a recommendation for a repeat screening in one year. - Lab Monitoring: Ordered blood work, including A1c, CBC, and renal function panel. [facility] Medical History Abdominal wall mass of left upper quadrant Diabetes type 2 Leukocytosis Abdominal pain Mass of abdomen of single quadrant Surgical History Hx of tubal ligation Hx of cholecystectomy Family History Father Cancer Mother Kidney failure COPD (chronic obstructive pulmonary disease) Lung cancer Diabetes Social History (Updated 11/12/25 @ 12:57 by Clayton Ulloa CMA) Household Members: None Housing: House Alcohol intake: current Alcohol intake frequency: does not drink Patient Tobacco Use Status: Never used Tobacco e-Cigarette/Vaping Use: Never Used service: No Current occupational status: employed Current occupation: [employer] Sexual orientation: Straight/Heterosexual Gender identity: Female Cognitive needs: No Hearing needs: No 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) Female Reproductive History Menstrual Age of Menarche: 10 Questionnaire Thrive Questionnaire Date Thrive assessed: 07/31/25 I am a: Patient What is your living situation today?: I have a steady place to live Within the past 12 months, did the food you bought not last and you didn't have the money to get more?: Never true Within the past 12 months, did you worry whether your food would run out before you got money to buy more?: I choose not to answer this question Do you have trouble paying for medicines?: No Do you have trouble getting transportation to medical appointments?: No Do you have trouble paying your heating and electricity bill?: No Do you have trouble taking care of your child, family member or friend?: No Do you have trouble with day-to-day activities such as bathing, preparing meals, shopping, managing finances, etc.?: No Are you currently unemployed and looking for a job?: No Are you interested in more education?: No Currently or been in a relationship where the following occur: No concerns reported THRIVE Score: 0 JANEE-7 AMB Questionnaire JANEE-7 Date JANEE - 7 assessed: 08/26/25 Source: Developed by Drs. Nakul Gaytan, Sheila Gottlieb, Gareth Smith and colleagues, with an educational johny from [employer]. Review of Systems Narrative Review of Systems - General: Denies pushing herself, but has energy. - Constitutional: Reports feeling cold, particularly with freezing feet at night. - Abdominal: Reports persistent pain, primarily in the left upper quadrant, sometimes incapacitating. - Reports abdominal swelling that is worse at night. - Reports the pain is starting to move to the other side. 10-point ROS reviewed and negative except as noted in HPI Physical exam (Primary Care) Vital Signs: Last Vital Signs Temp 97.9 F 11/12/25 12:57 Pulse 82 11/12/25 12:57 Resp 18 11/12/25 12:57 BP 161/77 H 11/12/25 12:57 Pulse Ox 99 11/12/25 12:57 Oxygen Delivery Method Room Air 11/12/25 12:57 BMI result Body Mass Index 20.9 Tobacco/Smoking Status: Tobacco use Status Tobacco use date assessed 08/26/25 11/12/25 12:59 Patient Tobacco Use Status Never used Tobacco 11/12/25 12:59 e-Cigarette/Vaping Use Never Used 11/12/25 12:59 Thrive Assessment: Date of Thrive Assessment Date Thrive assessed 07/31/25 11/12/25 12:59 Currently or been in a relationship where the following occur: No concerns reported Narrative Physical Exam General: Well-appearing, in no acute distress. Vital signs: Within normal limits. HEENT: Normocephalic, atraumatic. PERRLA, EOMI. Conjunctiva clear, sclera anicteric. Oropharynx clear, mucous membranes moist. TMs intact bilaterally. Neck: Supple, no lymphadenopathy, no thyromegaly, no JVD or carotid bruits. Cardiovascular: RRR, normal S1/S2, no murmurs, rubs, or gallops. Peripheral pulses 2+ and symmetric. No edema. Respiratory: Lungs clear to auscultation bilaterally, no wheezes, rales, or rhonchi. Normal effort. Abdomen: Soft, non-tender, non-distended. Normoactive bowel sounds. No hepatosplenomegaly, no masses. Tender area with a question of a mass in the left upper quadrant on examination. MSK: Full range of motion, no joint swelling or deformity. Normal gait. Skin: Warm, dry, intact. No rashes, lesions, or pallor. Neuro: Alert and oriented x3. Cranial nerves II-XII intact. Strength 5/5 throughout. Sensation intact. Reflexes 2+ symmetric. Normal coordination and gait. Psych: Appropriate mood and affect. Normal judgment and insight. Coding Level of Care Code Est Pt Level 3 (91979) Add On Problem Visit Only Diagnoses Diabetes type 2 E11.9 Abdominal wall mass of left upper quadrant R19.02 Lymph node enlargement R59.9 Uterine fibroid D25.9 Assessment & Plan Assessment & Plan (1) Diabetes type 2: Code(s): E11.9 - Type 2 diabetes mellitus without complications Category: Medical (2) Abdominal wall mass of left upper quadrant: Code(s): R19.02 - Left upper quadrant abdominal swelling, mass and lump Category: Medical (3) Lymph node enlargement: Comment: Iliac lymph node enlargement by CT scan Code(s): R59.9 - Enlarged lymph nodes, unspecified Category: Medical (4) Uterine fibroid: Code(s): D25.9 - Leiomyoma of uterus, unspecified Category: Medical Plan Consent The patient reports that the ANTI[employer] CLOCKS REPAIRER specialist's note documented a discussion of treatment options with their respective pros, cons, risks, and benefits. The note also detailed different types of hysterectomy, such as vaginal, laparoscopic-assisted, robotic-assisted, and abdominal with bilateral salpingo-oophorectomy, highlighting that minimally invasive approaches have less morbidity and shorter recovery. According to the documentation, the patient agreed to proceed with a hysterectomy. However, the patient states that these detailed discussions about robotic surgery did not occur and that she was only verbally told about the referral to [facility] as the provider was leaving the room. Patient was informed and verbally consented to the use of an ambient scribe for clinic note documentation during this visit. Plan 1. Uterine Fibroid And Mass - The patient has seen an ANTIQUE CLOCKS REPAIRER and a general surgeon regarding her uterine fibroids, mass, and associated pain. - She has decided to pursue a hysterectomy for definitive management. - The ANTIQUE CLOCKS REPAIRER provider at [facility] initiated a referral to [facility] for minimally invasive gynecologic surgery, as the requisite robotic equipment is unavailable at their facility. - Will continue to provide support and guidance as she navigates the referral and surgical scheduling process. 2. Abdominal Pain - The patient has a pending ultrasound of the abdomen ordered by the general surgeon to evaluate the tender area in her left upper quadrant. - Plan to await the results of the ultrasound before determining next steps. 3. Anemia - Order a CBC to assess the current status of her anemia, which is likely related to her uterine fibroids. 4. Health Monitoring - Order blood work including an A1c and a renal function panel for general health monitoring. Discussion Notes I discussed the patient's ongoing clinical course regarding her abdominal pain, uterine fibroids, and uterine mass. She expressed significant frustration with feeling like she is getting the runaround from various specialists and a lack of clear communication, particularly regarding the details of her ANTIQUE CLOCKS REPAIRER visit and the results of her uterine biopsy. She has decided to proceed with a hysterectomy for definitive management of her uterine issues and is navigating the referral process to [facility]. We reviewed the general surgeon's plan, which includes a pending ultrasound of the painful area in her abdomen. I explained that we would proceed with drawing blood work today to check her CBC for anemia, A1C, and renal function. We will await the results of her pending labs and imaging to guide further management. Patient Instructions - Please go to the lab to have your blood drawn today. - Follow up to complete the abdominal ultrasound that was ordered by the general surgeon. - Continue to work with the ANTIQUE CLOCKS REPAIRER's office regarding the referral to a surgeon at [facility] for a hysterectomy. - Due to your anemia, you may experience symptoms like feeling cold, especially in your hands and feet. - Limit your activity as needed due to pain. Medical Decision Making The patient is a 50-year-old female with a complex presentation of persistent abdominal pain and gynecological issues, including a large uterine fibroid and a uterine mass. She has undergone an extensive workup including MRI, multiple CT scans, and a uterine biopsy, but remains symptomatic and is frustrated with the subspecialty care she has received. The patient has clearly expressed her desire for a definitive surgical solution, a hysterectomy, for her uterine problems, having declined more conservative options. The ANTIQUE CLOCKS REPAIRER has appropriately referred her to a center with minimally invasive surgical capabilities, which aligns with her desire for definitive treatment. The separate issue of her localized left upper quadrant pain is being addressed by a general surgeon, with an ultrasound pending to investigate this further, as prior CT imaging was unremarkable. My role in her care at this visit is to provide continuity, address systemic issues like her anemia (likely secondary to fibroids), and perform general health monitoring with an A1c and renal function panel. The plan is to obtain this laboratory data and await the results of the pending specialty workup before determining further steps. Total Time Statement 20 min Total time spent caring for the patient today includes pre-visit chart review, documentation, review of laboratory and diagnostic imaging results, medication reconciliation, medically necessary evaluation, counseling on diagnoses, care coordination, ordering appropriate tests and medications, review of tests performed by other providers, reporting test results to the patient, and communication with other healthcare providers. Orders: Orders Comprehensive Met. Panel 11/12/25 E11.9 - Type 2 diabetes mellitus without complications, Z13.9 - Encounter for screening, unspecified Vitamin D 25-OH (D2 and D3) 11/12/25 E11.9 - Type 2 diabetes mellitus without complications Vitamin B12 11/12/25 E11.9 - Type 2 diabetes mellitus without complications Hemoglobin A1c 11/12/25 E11.9 - Type 2 diabetes mellitus without complications Microalbumin, Random (w Creat) 11/12/25 E11. - Type 2 diabetes mellitus without complications Complete Blood Count Auto Diff 11/12/25 E11.9 - Type 2 diabetes mellitus without complications
[2025-11-12 12:57] VITALS: BP 161/77; PULSE 82; RESP 18; TEMP 36.6; O2SAT 99; BMI 20.9
== END 2025-11-12 13:21 | disposition home or self-care (01) ==
LOC: HO.HMCFMS 12:40
PROVIDERS: PCP Student in an Organized Health Care Education/Training Program; Visit Provider Student in an Organized Health Care Education/Training Program
DX: E11.9 Type 2 diabetes mellitus without complications (principal); R19.02 Left upper quadrant abdominal swelling, mass and lump; R59.9 Enlarged lymph nodes, unspecified; D25.9 Leiomyoma of uterus, unspecified